=== PATIENT | male | born 1980 | race Caucasian/White ===

== ENCOUNTER 2016-12-23 12:53 | Observation (INO) | payer BC ==
--- NOTE | 2016-12-23 13:11 | ED ---
Chest Pain HPI - General Source: patient, EMS, RN notes reviewed Mode of arrival: EMS Limitations: no limitations <Luis Armando Plascencia - Last Filed: 12/23/16 14:36> <Stevenson Tinajero - Last Filed: 12/23/16 14:42> - General Stated Complaint: chest pain Time Seen by Provider: 12/23/16 12:58 - History of Present Illness Initial Comments: 36 year old male presents emergency Department with chief complaint of chest pain. Patient states started around 10:30 while he was getting worse for the stool. Patient states he was not overexerted himself. Though he is to his physical activity. Patient states started feeling slightly lightheaded a little dizzy and some pressure in his chest. Patient states he thought maybe is is hungry and just tired today he went inside states is not feeling any better at that time and states he became concerned. 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 Patient has no cardiac history no history of hyperlipidemia, hypertension, diabetes. No smoking history no known history. Patient denies any nausea, vomiting, abdominal pain. Patient denies any pleuritic chest pain. Patient was given aspirin, nitro. He states nitro she made it worse. (Luis Armando Plascencia) - Related Data Home Medications Medication Instructions Recorded Confirmed Ibuprofen [Advil] 200 - 400 mg PO Q8HR PRN 12/23/16 12/23/16 Spironolactone 100 mg PO BID 12/23/16 12/23/16 Venlafaxine HCl [Effexor] 37.5 mg PO DAILY 12/23/16 12/23/16 diphenhydrAMINE [Benadryl] 25 - 50 mg PO HS PRN 12/23/16 12/23/16 Allergies Allergy/AdvReac Type Severity Reaction Status Date / Time cefaclor [From Ceclor] AdvReac Rash/Hives Verified 12/23/16 13:23 lidocaine AdvReac SYNCOPE Verified 12/23/16 13:23 loratadine [From Claritin] AdvReac DYSRHYMIA Verified 12/23/16 13:23 Review of Systems ROS Other: All systems not noted in ROS Statement are negative. <Luis Armando Plascencia - Last Filed: 12/23/16 14:36> ROS Other: All systems not noted in ROS Statement are negative. <Stevenson Tinajero - Last Filed: 12/23/16 14:42> ROS Statement: Those systems with pertinent positive or pertinent negative responses have been documented in the HPI. EKG Findings - EKG Comments: EKG Findings:: EKG performed at 13:06 sinus tachycardia with a rate of 101 MT interval 138, QRS duration 90 QT/QTC 330/427 <TomasLuis Armando bunch - Last Filed: 12/23/16 14:36> General Exam General appearance: alert, in no apparent distress Head exam: Present: atraumatic, normocephalic, normal inspection Respiratory exam: Present: normal lung sounds bilaterally, chest wall tenderness. Absent: respiratory distress, wheezes, rales, rhonchi, stridor Cardiovascular Exam: Present: regular rate, normal rhythm, normal heart sounds. Absent: systolic murmur, diastolic murmur, rubs, gallop, clicks GI/Abdominal exam: Present: soft, normal bowel sounds. Absent: distended, tenderness, guarding, rebound, rigid <TemoLuis Armando Epps - Last Filed: 12/23/16 14:36> Course <Luis Armando Plascencia - Last Filed: 12/23/16 14:36> <Stevenson Tinajero - Last Filed: 12/23/16 14:42> Vital Signs 12/23/16 13:04 Temperature 98.2 F Pulse Rate 108 H Respiratory 16 Rate Blood Pressure 157/69 O2 Sat by Pulse 97 Oximetry - Reevaluation(s) Reevaluation #1: 12/23/16 14:40 I did personally do a [id number] examination and evaluation of the patient. He did present with midsternal chest pain that lasted over 45 minutes this morning after doing normal activities loading wood he did nothing that he thought could strain his chest wall. He did initially get some relief from aspirin nitroglycerin though repeat nitroglycerin seemed to make it somewhat worse. He still has some low-grade discomfort he states his normal heart rate is around 90 is been running 100 and above since the incident. He has no known risk factors he does not smoke or drink. No hypertension. His parents are healthy. There might be some remote history in his family members besides his parents. The initial cardiac enzymes and EKG are unremarkable. Clinical examination of his chest lungs are clear heart is regular no murmurs he is mildly tachycardic, examination about 10 7 bpm. No tenderness on palpation of the chest wall. Abdomen soft nontender. Patient will be admitted for further inpatient evaluation. This will include further enzymes and echocardiogram with cardiology consultation. A d-dimer is pending. (Stevenson Tinajero) Disposition <Luis Armando Plascencia - Last Filed: 12/23/16 14:36> <Stevenson Tinajero - Last Filed: 12/23/16 14:42> Clinical Impression: Unstable angina Disposition: ADMITTED IP TO THIS HOSP Condition: Stable Referrals: Stevenson Sandvoal [Primary Care Provider] - 1-2 days
[2016-12-23 13:29] LABS: Basophils # (A) 0.1 k/uL (0-0.2); Basophils % (A) 1 %; CH 31.9; CHCM 34.7; Eosinophils # (A) 0.1 k/uL (0-0.7); Eosinophils % (A) 1 %; HCT 46.6 % (39.0-53.0); HGB 15.8 gm/dL (13.0-17.5); Luc # (Auto) 0.25; Luc % (Auto) 3; Lymphocytes # (A) 1.5 k/uL (1.0-4.8); Lymphocytes % (A) 15 %; MCH 31.2 pg (25.0-35.0); MCHC 33.9 g/dL (31.0-37.0); MCV 92.3 fL (80.0-100.0); Mean Platelet Volume 6.5; Monocytes # (A) 0.6 k/uL (0-1.0); Monocytes % (A) 6 %; Neutrophils # (A) 7.4 k/uL (1.3-7.7); Neutrophils % (A) 75 %; RBC 5.05 m/uL (4.30-5.90); RDW 12.7 % (11.5-15.5); WBC 9.9 k/uL (3.8-10.6); WBC (Perox) 9.52
[2016-12-23 13:38] LABS: Partial Thromboplastin Time 24.1 sec (22.0-30.0); Prothrombin Time 10.4 sec (9.0-12.0)
[2016-12-23 13:44] LABS: ALT 28 U/L (21-72); AST 23 U/L (17-59); Alkaline Phosphatase 62 U/L (38-126); Anion Gap 8 mmol/L; Blood Urea Nitrogen 15 mg/dL (9-20); Calcium 9.8 mg/dL (8.4-10.2); Carbon Dioxide 30 mmol/L (22-30); Chloride 101 mmol/L (98-107); Glucose 91 mg/dL (74-99); Magnesium 2.1 mg/dL (1.6-2.3); Non-African American GFR(MDRD) >60 (>60 ml/min/1.73 sqM); Potassium 4.4 mmol/L (3.5-5.1); Sodium 139 mmol/L (137-145); Total Bilirubin 0.5 mg/dL (0.2-1.3); Total Protein 7.4 g/dL (6.3-8.2)
--- NOTE | 2016-12-23 13:57 | XR ---
EXAMINATION TYPE: XR chest 2V DATE OF EXAM: 12/23/2016 1:53 PM COMPARISON: NONE TECHNIQUE: PA and lateral views submitted. HISTORY: Chest pain FINDINGS: The lungs are clear and there is no pneumothorax, pleural effusion, or focal pneumonia. IMPRESSION: 1. No acute process.
[2016-12-23 14:04] LABS: Creatine Kinase 114 U/L (55-170)
[2016-12-23 14:17] LABS: Creatine Kinase MB 0.8 ng/mL (0.0-2.4); Troponin I <0.012 ng/mL (0.000-0.034)
[2016-12-23] MEDS ORDERED: HEPARIN SODIUM,PORCINE 5,000 UNIT/ML 1 ML VIAL IV ONE (14:37)
[2016-12-23] MEDS ORDERED: NITROGLYCERIN SL TABS 0.4 MG TAB SUBLINGUAL PRN (14:37)
[2016-12-23] MEDS ORDERED: HEPARIN SODIUM,PORCINE/D5W PMX 25,000 UNIT in DEXTROSE/WATER 1 500ML.BAG IV SCH (14:45)
[2016-12-23 20:10] LABS: Creatine Kinase 104 U/L (55-170)
[2016-12-23 20:23] LABS: Creatine Kinase MB 0.6 ng/mL (0.0-2.4); Troponin I <0.012 ng/mL (0.000-0.034)
[2016-12-23] MEDS ORDERED: diphenhydrAMINE 25 MG CAP PO PRN (21:00)
[2016-12-23] MEDS ORDERED: HYDROmorphone 1 MG/ML 1 ML SYRINGE IVP PRN (21:45)
[2016-12-23] MEDS ORDERED: ALPRAZolam 0.25 MG TAB PO PRN (21:45)
[2016-12-23] MEDS ORDERED: HYDROcodone/APAP 5-325MG 1 EACH TAB PO PRN (21:48)
[2016-12-23] MEDS ORDERED: IBUPROFEN 200 MG TAB PO PRN (21:48)
[2016-12-23] MEDS: SPIRONOLACTONE 25 MG TAB PO SCH (22:29)
[2016-12-23] MEDS: PANTOPRAZOLE 40 MG TABLET PO SCH (22:31)
[2016-12-23 22:52] LABS: Appearance,Urine Clear (Clear); Bilirubin,Urine Negative (Negative); Glucose,Urine (UA) Negative (Negative); Ketones,Urine Negative (Negative); Leukocyte Esterase,Urine Negative (Negative); Nitrite,Urine Negative (Negative); PH, Urine 5.5 (5.0-8.0); Protein,Urine Negative (Negative); Specific Gravity,Urine 1.006 (1.001-1.035); UA Billing (MACRO vs. MICRO) CHEM; Urobilinogen,Urine <2.0 mg/dL (<2.0)
[2016-12-24 02:19] LABS: Creatine Kinase 90 U/L (55-170)
[2016-12-24 02:30] LABS: Creatine Kinase MB 0.6 ng/mL (0.0-2.4); Troponin I <0.012 ng/mL (0.000-0.034)
[2016-12-24] MEDS ORDERED: HEPARIN SODIUM,PORCINE 5,000 UNIT/ML 1 ML VIAL IV PRN (03:27)
--- NOTE | 2016-12-24 06:24 | HP ---
DATE OF ADMISSION: CHIEF COMPLAINT: Chest pain. HISTORY OF PRESENT ILLNESS: Mr. Lord is a 36-year-old male without significant past medical history came to the hospital with complaints of chest pain. Apparently around 10:30 a.m. today, the patient was working in the yard. Suddenly, he became lethargic and dizzy and lightheadedness and also pressure in the chest which lasted about 40-45 minutes. His blood pressure was 130/70 when it happened. Patient called EMS and he did 12-lead EKG which showed an old infarct. Patient was given nitroglycerin by EMS, which seems to relieve his pain. Patient was brought to the hospital for further evaluation. Patient had chest pressure while in the hospital and patient was given another nitroglycerin. Patient says that which did not relieve his pain. The patient does not have any history for prior heart disease. No history of hypertension. No history of hyperlipidemia or coronary artery disease in the family. Patient denied any recent illnesses. 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 No sick contacts at home. REVIEW OF SYSTEMS: CONSTITUTIONAL: No fever. No chills. Patient did have fatigue and weakness when he came to the hospital. CARDIOVASCULAR: No chest pain now. No short of breath. No leg swelling. No palpitations. ABDOMEN: No nausea or vomiting or abdominal pain. RESPIRATORY: No cough or sputum production. No short of breath. GENITOURINARY: Negative. ENDOCRINE: Negative. NEUROLOGIC: No headache or dizziness or lightheadedness. All other 14-point review of systems negative except as above. PAST MEDICAL HISTORY: Depression. PAST SURGICAL HISTORY: None. SOCIAL HISTORY: Patient denied any history of smoking. Denied alcohol, drugs or IVDU. 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 FAMILY HISTORY: No history of hypertension, diabetes mellitus or premature heart disease in the family. ALLERGIES: CEFACLOR, LIDOCAINE and LORATADINE. Home medication include: 1. Ibuprofen. 2. Spironolactone. 3. Venlafaxine. 4. Benadryl. The patient does take spironolactone for gender ( ). PHYSICAL EXAMINATION: A 36-year-old male lying in bed comfortably, awake, alert, oriented, x3. Appears to be no apparent distress. VITALS: Blood pressure is 119/82, pulse is 99, respirations 16, temperature afebrile, pulse ox 96% on room air. HEENT: Atraumatic, normocephalic. Neck is supple. No JVD. CVS EXAM: S1, S2 heard. No murmurs, no gallop, no rub. LUNGS: Bilateral air entry is present. No wheezing. No crackles. Nonlabored breathing. ABDOMEN: Soft, nontender. Bowel sounds are present. REAL ESTATE AGENT/BROKER: Awake, alert, oriented, x3. No focal deficit. EXTREMITIES: No edema. Pulses palpable bilaterally. No clubbing or cyanosis. PSYCHIATRIC: Cooperative. LABORATORY DATA: WBC 9.9, hemoglobin 15.8, platelets 320. INR 1.0. D-dimer is 0.21. Sodium 139, potassium 4.4, chloride 101, bicarb is 30. BUN 15, creatinine 1.17. Magnesium 2.1. Liver enzymes are not elevated. Total protein 7.4. Lipase is 185. Troponin x2 negative. EKG shows sinus tachycardia with heart rate of 101. CHEST X-RAY: No acute process. IMPRESSION: Unstable angina. Patient will be continued on heparin drip at this time. Cardiology has been consulted. We will continue the telemonitoring and serial EKGs and troponins. D-dimer will be ordered and continue to monitor closely. Continue the home medications. Patient does take spironolactone for gender variance as per the patient. Patient does not have any history of hypertension. No history of hyperlipidemia or smoking or family history. Cardiology has been consulted for further evaluation. Further recommendations based on the clinical course. DM
--- NOTE | 2016-12-24 06:39 | HP ---
DATE OF ADMISSION: CHIEF COMPLAINT: Chest pain. HISTORY OF PRESENT ILLNESS: This 36-year-old gentleman with a past history of DJD, history of gender dysphoria, history of wisdom teeth extraction, history of depression being followed by Dr. Stevenson Sandoval in the [place] area who specializes in gender dysphoria who presented at [facility] with complaints of chest pressure. 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 Because of persistence of the discomfort, patient became concerned and patient came to [facility] and admitted for further evaluation and treatment. The initial troponins are negative. The initial EKG showed normal sinus rhythm and no acute abnormality. The chest x-ray was also done in the ER which showed no acute process and the patient admitted for further evaluation and treatment. There is no history of any fever, rigors or chills. No history of headache, loss of consciousness or seizures. PAST MEDICAL HISTORY: History of DJD, history of depression. Medications prior to admission include: 1. Benadryl 25 to 50 mg q.h.s. p.r.n. 2. Effexor 37.5 mg p.o. daily. 3. Aldactone 100 mg p.o. b.i.d. 4. Advil 200 to 400 mg p.o. q.8 p.r.n. Allergies are CEFACLOR, LIDOCAINE and LORATADINE. FAMILY HISTORY: No history of heart disease or strokes in the family. SOCIAL HISTORY: No history of smoking. No history of alcohol intake. 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 REVIEW OF SYSTEMS: ENT: No diminishing hearing or diminished vision. CARDIOVASCULAR: As mentioned earlier. RESPIRATORY: As mentioned earlier. GI: No nausea. : No dysuria. NERVOUS SYSTEM: No numbness or weakness. ALLERGY/IMMUNOLOGY: No history of asthma or hayfever. MUSCULOSKELETAL: As mentioned earlier. HEMATOLOGY/ONCOLOGY: No history of anemia. ENDOCRINE: As mentioned earlier. CONSTITUTIONAL: As mentioned earlier. DERMATOLOGY: Negative. RHEUMATOLOGY: Negative. PSYCHIATRY: As mentioned earlier. PHYSICAL EXAMINATION: The patient is alert and oriented x3. Pulse is 99, blood pressure 119/82, respiratory 16, temperature 98.7, pulse ox 96% on room air. HEENT: Conjunctivae normal. Oral mucosa moist. NECK: No jugular venous distention. No carotid bruit. No lymph node enlargement. CARDIOVASCULAR: S1 and S2, muffled. No S3, no S4. RESPIRATORY: Breath sounds diminished at the bases. No rhonchi, no crackles. ABDOMEN: Soft, nontender. No mass palpable. LEGS: No edema, no swelling. NERVOUS SYSTEM: Higher function as mentioned earlier. Moves all 4 limbs. No focal motor deficit. LYMPHATICS: No lymphadenopathy of neck, axillae or groin. SKIN: No ulcers, rashes or bleeding. JOINTS: No active deforming arthropathy. LABS: CBC within normal limits. PT, INR normal. CMP within normal limits. ASSESSMENT: 1. Chest discomfort and rule out myocardial infarction and unstable angina and coronary artery disease. 2. History of degenerative joint disease. 3. History of depression, not otherwise specified. 4. FULL CODE. RECOMMENDATIONS AND DISCUSSION: In this 36-year-old gentleman who was admitted with chest pain, we will monitor the patient closely. Continue the current medications and symptomatic treatment of the pain will be provided. Rule out myocardial infarction. Cardiology consultation. Keep n.p.o. past midnight, possible stress test in the morning if all the troponins are negative. Otherwise, will resume the home medications. Guarded prognosis because of multiple complex medical issues. Further recommendations to follow. See orders for further details.
[2016-12-24 06:46] VITALS: RESP 18
[2016-12-24 07:06] LABS: Basophils % (A) 0 %; CH 30.9; CHCM 33.3; Eosinophils # (A) 0.1 k/uL (0-0.7); Eosinophils % (A) 2 %; HCT 48.6 % (39.0-53.0); HGB 15.8 gm/dL (13.0-17.5); Luc # (Auto) 0.19; Luc % (Auto) 2; Lymphocytes # (A) 2.3 k/uL (1.0-4.8); Lymphocytes % (A) 28 %; MCH 30.3 pg (25.0-35.0); MCHC 32.5 g/dL (31.0-37.0); MCV 93.2 fL (80.0-100.0); Mean Platelet Volume 6.4; Monocytes # (A) 0.4 k/uL (0-1.0); Monocytes % (A) 5 %; Neutrophils # (A) 5.2 k/uL (1.3-7.7); Neutrophils % (A) 63 %; RBC 5.21 m/uL (4.30-5.90); RDW 12.9 % (11.5-15.5); WBC 8.2 k/uL (3.8-10.6); WBC (Perox) 7.94
[2016-12-24 07:16] LABS: Anion Gap 9 mmol/L; Blood Urea Nitrogen 13 mg/dL (9-20); Calcium 9.3 mg/dL (8.4-10.2); Carbon Dioxide 29 mmol/L (22-30); Chloride 103 mmol/L (98-107); Cholesterol 159 mg/dL (<200); Glucose 92 mg/dL (74-99); HDL Cholesterol 42 mg/dL (40-60); Non-African American GFR(MDRD) >60 (>60 ml/min/1.73 sqM); Potassium 4.1 mmol/L (3.5-5.1); Sodium 141 mmol/L (137-145); Triglycerides 146 mg/dL (<150)
--- NOTE | 2016-12-24 08:17 | P.CRDCN ---
History of Present Illness Consult date: 12/24/16 Chief complaint: Chest discomfort History of present illness: This is a pleasant 36-year-old male patient with no significant past medical history presented to the hospital complaining of chest discomfort. He was in his usual state of health where he was doing some work at home when he started experiencing chest discomfort across the chest without any radiation to the arm or neck or shoulders and without any associated symptoms. He called ambulance and a 12 sees EKG was performed as well as he was given nitroglycerin without improvement in the symptoms. The EKG in the hospital showed sinus rhythm without any significant ST or T- wave abnormalities. 3 sets of cardiac enzymes were performed and came in to be unremarkable. The patient has no history of diabetes or hypertension or dyslipidemia. He does not smoke or drink alcohol. He has no significant family history of CAD. Past Medical History Past Medical History: Osteoarthritis (OA) Additional Past Medical History / Comment(s): GENDER DYSPHORIA, DEPRESSION History of Any Multi-Drug Resistant Organisms: None Reported Past Surgical History: No Surgical Hx Reported Additional Past Surgical History / Comment(s): WISDOM TEETH REMOVED,SX ON BELEM GREAT TOES FOR INGROWN TOE NAILS Past Anesthesia/Blood Transfusion Reactions: No Reported Reaction Additional Past Anesthesia/Blood Transfusion Reaction / Comment(s): MOTION SICKNESS CHILD Past Psychological History: Depression Additional Psychological History / Comment(s): PT STATED THAT HE FEELS WELL MAINTAINED ON HIS CURRENT MEDS.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 Smoking Status: Never smoker Past Alcohol Use History: None Reported Past Drug Use History: None Reported Medications and Allergies Home Medications Medication Instructions Recorded Confirmed Type Ibuprofen [Advil] 200 - 400 mg PO Q8HR PRN 12/23/16 12/23/16 History Spironolactone 100 mg PO BID 12/23/16 12/23/16 History Venlafaxine HCl [Effexor] 37.5 mg PO DAILY 12/23/16 12/23/16 History diphenhydrAMINE [Benadryl] 25 - 50 mg PO HS PRN 12/23/16 12/23/16 History Allergies Allergy/AdvReac Type Severity Reaction Status Date / Time cefaclor [From Ceclor] AdvReac Rash/Hives Verified 12/23/16 13:23 lidocaine AdvReac SYNCOPE Verified 12/23/16 13:23 loratadine [From Claritin] AdvReac DYSRHYMIA Verified 12/23/16 13:23 Physical Exam Vitals: Vital Signs Temp Pulse Pulse Pulse Resp BP BP 12/24/16 04:00 98.5 F 89 98 18 132/73 12/24/16 01:00 122/78 12/24/16 00:00 16 126/70 12/23/16 20:00 16 12/23/16 19:44 98.8 F 98 16 122/71 12/23/16 17:00 98.7 F 99 16 119/82 12/23/16 16:45 97.3 F L 99 18 123/74 Pulse Ox 12/24/16 04:00 95 12/24/16 01:00 12/24/16 00:00 12/23/16 20:00 12/23/16 19:44 100 12/23/16 17:00 96 12/23/16 16:45 100 Intake and Output 12/23/16 12/24/16 12/24/16 22:59 06:59 14:59 Intake Total 247.295 Balance 247.295 Intake: Intake, IV Titration 247.295 Amount Heparin Sodium,Porcine/ 247.295 D5w Pmx 25,000 unit In Dextrose/Water 1 500ml. bag @ 9.1 UNITS/KG/HR 19. 81 mls/hr IV .Q24H [facility] Rx #:[id number] Other: # Voids 1 Weight 108.9 kg 108.9 kg - Constitutional General appearance: no acute distress - Respiratory Respiratory: bilateral: CTA - Cardiovascular Rhythm: regular Heart sounds: normal: S1, S2 Results 12/24/16 06:48 12/24/16 06:48 Cardiac Enzymes 12/23/16 12/24/16 Range/Units 19:34 01:26 CK-MB (CK-2) 0.6 0.6 (0.0-2.4) ng/mL Troponin I <0.012 <0.012 (0.000-0.034) ng/mL Coagulation 12/23/16 12/24/16 Range/Units 22:04 06:48 APTT 29.1 38.0 H (22.0-30.0) sec Lipids 12/24/16 Range/Units 06:48 Triglycerides 146 (<150) mg/dL Cholesterol 159 (<200) mg/dL HDL Cholesterol 42 (40-60) mg/dL CBC 12/24/16 Range/Units 06:48 WBC 8.2 (3.8-10.6) k/uL RBC 5.21 (4.30-5.90) m/uL Hgb 15.8 (13.0-17.5) gm/dL Hct 48.6 (39.0-53.0) % Plt Count 286 (150-450) k/uL Comprehensive Metabolic Panel 12/24/16 Range/Units 06:48 Sodium 141 (137-145) mmol/L Potassium 4.1 (3.5-5.1) mmol/L Chloride 103 (98-107) mmol/L Carbon Dioxide 29 (22-30) mmol/L BUN 13 (9-20) mg/dL Creatinine 1.02 (0.66-1.25) mg/dL Glucose 92 (74-99) mg/dL Calcium 9.3 (8.4-10.2) mg/dL Current Medications Generic Name Dose Route Start Last Admin Trade Name Freq PRN Reason Stop Dose Admin Hydrocodone Bitart/Acetaminophen 1 each 12/23/16 21:48 12/23/16 22:37 Tun[place] 5-325 PO 1 each Q6HR PRN Administration moderate Pain Alprazolam 0.25 mg 12/23/16 21:45 Xanax PO TID PRN Anxiety Aspirin 325 mg 12/24/16 09:00 Aspirin PO DAILY DOMO Diphenhydramine HCl 25 mg 12/23/16 21:00 12/23/16 22:37 Benadryl PO 25 mg HS PRN Administration Insomnia Heparin Sodium (Porcine) 0 unit 12/24/16 03:27 12/24/16 03:35 Heparin IV 4,000 unit PER PROTOCOL PRN Administration Low PTT Protocol Hydromorphone HCl 0.5 mg 12/23/16 21:45 Dilaudid IVP Q6HR PRN Severe Pain Heparin Sodium/Dextrose 25,000 500 mls @ 19.81 mls/hr 12/23/16 14:45 03:34 unit/ IV Solution IV 12.12 units/kg/hr .Q24H DOMO 26.4 mls/hr Protocol Titration 9.1 UNITS/KG/HR Ibuprofen 400 mg 12/23/16 21:48 Advil PO Q8HR PRN mild Pain Nitroglycerin 0.4 mg 12/23/16 14:37 12/23/16 20:11 Nitrostat SUBLINGUAL 0.4 mg Q5M PRN Administration Chest Pain Pantoprazole Sodium 40 mg 12/23/16 21:45 12/23/16 22:31 Protonix PO 40 mg [id number] DOMO Administration Spironolactone 100 mg 12/23/16 21:00 12/23/16 22:29 Aldactone PO Not Given BID DOMO Venlafaxine HCl 37.5 mg 12/24/16 09:00 Effexor PO DAILY DOMO Intake and Output 12/23/16 12/24/16 12/24/16 22:59 06:59 14:59 Intake Total 247.295 Balance 247.295 Intake: Intake, IV Titration 247.295 Amount Heparin Sodium,Porcine/ 247.295 D5w Pmx 25,000 unit In Dextrose/Water 1 500ml. bag @ 9.1 UNITS/KG/HR 19. 81 mls/hr IV .Q24H [facility] Rx #:[id number] Other: # Voids 1 Weight 108.9 kg 108.9 kg 12/24/16 06:48 12/24/16 06:48 Assessment and Plan Plan: Assessment Chest discomfort which has resolved Plan The patient was ruled out for acute coronary event I'll proceed with a stress test.
[2016-12-24] MEDS ORDERED: VENLAFAXINE HCL 37.5 MG TAB PO SCH (09:00)
[2016-12-24] MEDS ORDERED: ASPIRIN 325 MG TAB PO SCH (09:00)
--- NOTE | 2016-12-24 10:57 | EST ---
DATE OF SERVICE: 12/24/2016 AGE: 36Y SEX: M HT: 6' WT: 240 lbs. Protocol Santos: X Other: Stress Stage: 2 Dur. of Exercise: 7:27 *Heart Rate Blood Pressure *Rest: 94 Rest: 119/77 * *Max. Achieved: 168 Maximum BP: 170/60 85% PMHR: 156 100% PMHR: 184 *METS: 8.3 INDICATIONS: Chest pain. MEDICATIONS: Effexor, Spironolactone, Advil, Benadryl, Zyrtec D. Baseline EKG revealed normal sinus rhythm without significant ST-T changes. Patient walked for 7-1/2 minutes, achieved a maximum of 168 beats per minute, well above 85% of predicted maximal. He developed some shortness of breath, lightheadedness and became vasovagal towards the end of exercise. Peak blood pressure was 170/60, peak heart rate was 168 beats per minute. By EKG criteria, this is a negative stress test. There was no arrhythmia or angina and EKG was unremarkable for ischemia. Post stress test, patient developed some lightheadedness and dizziness and had a brief vasovagal episode that resolved very quickly. He was given some IV fluids. He was sent to the room in a stable condition and an echocardiogram was also advised. This is a negative stress test without any evidence of ischemia.
[2016-12-24] MEDS: SPIRONOLACTONE 25 MG TAB PO SCH (11:30)
[2016-12-24] MEDS: PANTOPRAZOLE 40 MG TABLET PO SCH (11:30)
[2016-12-24] MEDS ORDERED: MAG HYDROX/AL HYDROX/SIMETH 30 ML CUP PO PRN (11:45)
--- NOTE | 2016-12-24 12:05 | ECHOF ---
Referral Reason:Atypical Chest Pain. MEASUREMENTS -------- HEIGHT: 182.9 cm WEIGHT: 113.4 kg BP: RVIDd: 2.8 cm (< 3.3) IVSd: 1.2 cm (0.6 - 1.1) LVIDd: 3.6 cm (3.9 - 5.3) LVPWd: 1.0 cm (0.6 - 1.1) IVSs: 1.4 cm LVIDs: 3.2 cm LVPWs: 1.1 cm LA Diam: 3.5 cm (2.7 - 3.8) Ao Diam: 3.1 cm (2.0 - 3.7) AV Cusp: 1.7 cm (1.5 - 2.6) LA Diam: 3.3 cm (2.7 - 3.8) MV EXCURSION: 20.130 mm (> 18.000) MV EF SLOPE: 109 mm/s (70 - 150) EPSS: 0.8 cm MV E Ryan: 0.50 m/s MV DecT: 230 ms MV A Ryan: 0.62 m/s MV E/A Ratio: 0.80 AR PHT: 295 ms RAP: 5.00 mmHg RVSP: 22.68 mmHg FINDINGS -------- Sinus rhythm. This was a technically good study. There is mild concentric left ventricular hypertrophy. Overall left ventricular systolic function is normal with, an EF between 55 - 60 %. The right ventricle is normal in size. The left atrial size is normal. The right atrial size is normal. There is mild aortic valve sclerosis. There is no evidence of aortic regurgitation. Mild mitral annular calcification present. Mild mitral regurgitation is present. Mild tricuspid regurgitation present. There is no evidence of pulmonary hypertension. The right ventricular systolic pressure, as measured by Doppler, is 22.68mmHg. There is no pulmonic regurgitation present. The aortic root size is normal. There is no pericardial effusion. CONCLUSIONS -------- 1. There is mild concentric left ventricular hypertrophy. 2. Overall left ventricular systolic function is normal with, an EF between 55 - 60 %. 3. There is mild aortic valve sclerosis. 4. Mild mitral annular calcification present. 5. Mild mitral regurgitation is present. 6. Mild tricuspid regurgitation present. 7. There is no evidence of pulmonary hypertension. 8. The right ventricular systolic pressure, as measured by Doppler, is 22.68mmHg. ROBOTYPE OPERATOR: Chloe Bolivar RDCS
[2016-12-24 12:15] VITALS: PULSE 103
[2016-12-24 16:21] VITALS: BP 137/74; TEMP 98.7
--- NOTE | 2016-12-25 06:15 | DS ---
DATE OF ADMISSION: 12/23/2016 DATE OF DISCHARGE: 12/24/2016 DISCHARGE DIAGNOSES: 1. Chest pain/angina. Ruled out acute coronary syndrome. Negative stress test and echocardiogram. 2. Anxiety. HOSPITAL COURSE: Mr. Lord is a 36-year-old male without significant past medical history admitted to the hospital with complaints of chest pain. Patient had EKG done in the hospital, showed normal sinus rhythm with no ST-T wave changes. The patient underwent telemonitoring and serial EKGs and troponins were done. Troponin x3 is negative and also serial EKGs are negative as well. No acute events noted on the telemetry. Cardiology seen the patient and recommended a stress test, which showed no reversible ischemia. Patient also had underwent a 2-D echocardiogram, showed normal ejection fraction, no wall motion abnormalities or valvular abnormalities have been noted. Otherwise, patient did complain of dull pain and D-dimer was done, which was also negative. Patient was advised to not use ibuprofen on a daily basis and advised to take with food. Otherwise, the patient is symptomatically much improved now and is stable for discharge home. DISCHARGE PHYSICAL EXAMINATION: A 36-year-old male, lying on the bed comfortably, awake, alert, oriented x3, appears to be in no apparent distress. VITALS: Blood pressure is 137/74, pulse 103, respirations 18, temperature afebrile, pulse ox 97% on room air. Laboratory data reviewed Troponin x3 are negative. LDL is 88. TSH level is 1.5. D-dimer is not elevated 0.21. Other laboratory data are essentially negative. Discharge physical examination done. Discharge medications include: 1. Ibuprofen 200 to 400 mg p.o. q.8 hourly p.r.n. for pain. 2. Spironolactone 100 mg p.o. b.i.d. 3. Effexor 37.5 mg p.o. daily. 4. Benadryl 25 to 50 mg p.o. at bedtime p.r.n. for insomnia. Follow with Dr. Wick and follow with Dr. Stevenson Sandoval in 1 to 2 days. Home with self care. Activity as tolerated. Heart healthy diet.
== END 2016-12-24 17:04 | disposition home or self-care (01) ==
LOC: EC 12:53 → 3OBS 14:42 → 6SEL 12-24 09:21 → 3OBS 12-24 09:29
PROVIDERS: ADMIT Hospitalist; ATTEND Hospitalist
DX: I20.0 Unstable angina (principal); R07.9 Chest pain, unspecified; F41.9 Anxiety disorder, unspecified; F32.9 Major depressive disorder, single episode, unspecified; Z79.899 Other long term (current) drug therapy; Z88.4 Allergy status to anesthetic agent; Z88.3 Allergy status to other anti-infective agents; Z88.8 Allergy status to other drugs, medicaments and biological substances
CPT/HCPCS: 96376 ×2; 96365 ×2; 96366 ×4; 99285 ×2; 36415; 93005; 93017; 93306; 85379; 80061; 80053; 80048; 84443; 82550 ×2; 82553 ×2; 83690; 83735; 84484 ×2; 85025 ×2; 85610; 85730 ×2; 81003; 71020; G0378 ×2; J1644 ×3

== ENCOUNTER 2016-12-26 20:21 | Observation (INO) | payer BC ==
[2016-12-26] MEDS ORDERED: SODIUM CHLORIDE 0.9% 1,000 ML BAG ONE (20:30)
[2016-12-26] MEDS ORDERED: MORPHINE SULFATE 4 MG/ML SYRINGE ONE (20:37)
[2016-12-26] MEDS ORDERED: LORazepam 2 MG/ML SYRINGE ONE (20:37)
[2016-12-27] MEDS ORDERED: NITROGLYCERIN OINT 1 INCH/GM PACKET TOPICAL ONE (00:30)
[2016-12-27 02:18] LABS: Basophils # (A) 0.1 k/uL (0-0.2); Basophils % (A) 1 %; CH 31.4; CHCM 34.7; Eosinophils # (A) 0.1 k/uL (0-0.7); Eosinophils % (A) 1 %; HGB 15.7 gm/dL (13.0-17.5); Luc # (Auto) 0.36; Luc % (Auto) 3; Lymphocytes # (A) 1.8 k/uL (1.0-4.8); Lymphocytes % (A) 14 %; MCH 30.9 pg (25.0-35.0); MCV 90.9 fL (80.0-100.0); Mean Platelet Volume 6.7; Monocytes # (A) 0.7 k/uL (0-1.0); Monocytes % (A) 6 %; Neutrophils # (A) 9.8 k/uL (1.3-7.7); Neutrophils % (A) 76 %; RBC 5.06 m/uL (4.30-5.90); RDW 12.7 % (11.5-15.5); WBC 12.8 k/uL (3.8-10.6); WBC (Perox) 12.48
[2016-12-27 02:19] LABS: INR 1.1 (<1.1); Partial Thromboplastin Time 24.2 sec (22.0-30.0); Prothrombin Time 11.2 sec (9.0-12.0)
[2016-12-27 02:20] LABS: ALT 28 U/L (21-72); AST 26 U/L (17-59); Alkaline Phosphatase 73 U/L (38-126); Amylase 58 U/L (30-110); Anion Gap 14 mmol/L; Blood Urea Nitrogen 15 mg/dL (9-20); Calcium 10.4 mg/dL (8.4-10.2); Carbon Dioxide 20 mmol/L (22-30); Chloride 103 mmol/L (98-107); Glucose 91 mg/dL (74-99); Magnesium 1.9 mg/dL (1.6-2.3); Non-African American GFR(MDRD) >60 (>60 ml/min/1.73 sqM); Phosphorous 1.7 mg/dL (2.5-4.5); Potassium 3.8 mmol/L (3.5-5.1); Sodium 137 mmol/L (137-145); Total Bilirubin 0.5 mg/dL (0.2-1.3); Total Protein 7.2 g/dL (6.3-8.2)
[2016-12-27 02:21] LABS: Creatine Kinase 112 U/L (55-170); Creatine Kinase MB 0.7 ng/mL (0.0-2.4); Troponin I <0.012 ng/mL (0.000-0.034)
[2016-12-27 02:50] VITALS: BMI 32.5
[2016-12-27 04:51] LABS: Creatine Kinase 93 U/L (55-170)
[2016-12-27] MEDS: SODIUM CHLORIDE 0.9% 1,000 ML IV SCH ×2 (04:59→16:51)
[2016-12-27 05:05] LABS: Creatine Kinase MB 0.9 ng/mL (0.0-2.4); Troponin I <0.012 ng/mL (0.000-0.034)
[2016-12-27] MEDS: NITROGLYCERIN OINT 1 INCH/GM PACKET TOPICAL SCH ×3 (06:18→18:30)
--- NOTE | 2016-12-27 07:40 | XR ---
EXAMINATION TYPE: XR chest 1V portable DATE OF EXAM: 12/27/2016 7:26 AM COMPARISON: 12/23/2016 HISTORY: Shortness of breath TECHNIQUE: Single frontal view of the chest is obtained. FINDINGS: There is no focal air space opacity, pleural effusion, or pneumothorax seen. The cardiac silhouette size is within normal limits. The osseous structures are intact. IMPRESSION: No acute process.
[2016-12-27] MEDS ORDERED: ASPIRIN 325 MG TAB PO SCH (09:00)
[2016-12-27] MEDS ORDERED: NON-FORMULARY DRUG (Cetirizine Hcl [Zyrtec] 10 MG) PO SCH (10:00)
[2016-12-27] MEDS: ACETAMINOPHEN TAB 325 MG TAB PO PRN ×2 (10:22→16:48)
[2016-12-27 10:24] LABS: Creatine Kinase 98 U/L (55-170)
[2016-12-27 10:37] LABS: Creatine Kinase MB 0.7 ng/mL (0.0-2.4); Troponin I <0.012 ng/mL (0.000-0.034)
[2016-12-27] MEDS: SPIRONOLACTONE 25 MG TAB PO SCH ×2 (11:02→16:48)
[2016-12-27] MEDS: PRENATAL VIT-IRON-FOLIC ACID 1 EACH CAP PO SCH (11:02)
[2016-12-27] MEDS: VENLAFAXINE HCL 37.5 MG TAB PO SCH (11:03)
--- NOTE | 2016-12-27 14:31 | CT ---
EXAM: CT Angiography Chest With Intravenous Contrast CLINICAL HISTORY: Chest pain and SOB. TECHNIQUE: Axial computed tomographic angiography images of the chest with intravenous contrast using pulmonary embolism protocol. CTDI is 11.8 mGy and DLP is 494.5 mGy-cm This CT exam was performed using one or more of the following dose reduction techniques: automated exposure control, adjustment of the mA and/or kV according to patient size, and/or use of iterative reconstruction technique. MIP reconstructed images were created and reviewed. Coronal and sagittal reformatted images were created and reviewed. COMPARISON: No relevant prior studies available. FINDINGS: Pulmonary arteries: No pulmonary embolism. Aorta: No acute findings. No thoracic aortic aneurysm. Lungs: Left upper lobe 4-mm nodule. Pleural space: Unremarkable. No significant effusion. No pneumothorax. Heart: Unremarkable. No cardiomegaly. No significant pericardial effusion. No evidence of RV dysfunction. Bones/joints: Multilevel degenerative changes of the thoracic spine with Schmorl's nodes. No acute fracture. No dislocation. Soft tissues: Unremarkable. Lymph nodes: Unremarkable. No enlarged lymph nodes. IMPRESSION: 1. No pulmonary embolism. 2. Left upper lobe 4-mm nodule. For low-risk patients, no follow-up is necessary. For high-risk patients (smoking history or other known risk factors) recommend CT at 12 months and if unchanged, no further follow-up.
[2016-12-28] MEDS ORDERED: ALPRAZolam 0.25 MG TAB PO PRN (00:03)
[2016-12-28] MEDS ORDERED: ALBUTEROL NEBULIZED 2.5 MG/3 ML INHALATION PRN (00:07)
[2016-12-28] MEDS: NITROGLYCERIN OINT 1 INCH/GM PACKET TOPICAL SCH ×2 (02:12→08:34)
[2016-12-28 08:08] LABS: Basophils # (A) 0.1 k/uL (0-0.2); Basophils % (A) 1 %; CHCM 33.1; Eosinophils # (A) 0.1 k/uL (0-0.7); Eosinophils % (A) 1 %; HCT 47.2 % (39.0-53.0); HDW 2.34; HGB 15.3 gm/dL (13.0-17.5); Luc # (Auto) 0.25; Luc % (Auto) 3; Lymphocytes # (A) 1.9 k/uL (1.0-4.8); Lymphocytes % (A) 21 %; MCH 30.6 pg (25.0-35.0); MCHC 32.6 g/dL (31.0-37.0); MCV 94.1 fL (80.0-100.0); Mean Platelet Volume 6.4; Monocytes # (A) 0.5 k/uL (0-1.0); Monocytes % (A) 6 %; Neutrophils # (A) 6.3 k/uL (1.3-7.7); Neutrophils % (A) 69 %; RBC 5.01 m/uL (4.30-5.90); RDW 12.9 % (11.5-15.5); WBC 9.2 k/uL (3.8-10.6); WBC (Perox) 9.25
[2016-12-28] MEDS ORDERED: BECLOMETHASONE DIP 80 MCG/PUFF INHALER INHALATION SCH (09:00)
[2016-12-28 09:14] LABS: Anion Gap 13 mmol/L; Blood Urea Nitrogen 12 mg/dL (9-20); Calcium 9.5 mg/dL (8.4-10.2); Carbon Dioxide 25 mmol/L (22-30); Chloride 104 mmol/L (98-107); Glucose 84 mg/dL (74-99); Non-African American GFR(MDRD) >60 (>60 ml/min/1.73 sqM); Potassium 4.7 mmol/L (3.5-5.1); Sodium 142 mmol/L (137-145)
[2016-12-28] MEDS ORDERED: ASPIRIN 81 MG CHEW PO SCH (09:42)
[2016-12-28] MEDS ORDERED: SODIUM CHLORIDE 0.9% 1,000 ML IV SCH (09:45)
--- NOTE | 2016-12-28 10:16 | PN ---
Mr. Guzman Lord a 36-year-old male patient was admitted for evaluation of chest discomfort. He was seen by Dr. Moore yesterday. His initial chest discomfort occurred when he was in the yard, doing some yard work. He was dizzy. He was lightheaded. He was having chest discomfort. He underwent a regular stress test today and became vasovagal towards the end of the test. Echo was normal. Ejection fraction is normal. Pulmonary artery pressure is normal. He underwent a CT of the chest which shows a 4 mm nodule, I doubt if this is related to his pain. I examined this morning and reviewed his labs. His cardiac enzymes have been negative x3. His hemoglobin is normal. Electrolytes are normal. TSH is normal. BNP is normal. On examination, his blood pressure is 121/64 mmHg, 104/72 mmHg. Heart sounds are normal. Breath sounds are normal. No rhonchi. No crackles. Chest wall no tenderness. IMPRESSION: 1. Atypical constant chest discomfort 5 out of 10 while lying in bed as well as when walking, relieved with nitroglycerin. 2. Admitted with an episode of chest discomfort with dizziness, lightheadedness while working in the yard. 3. Chest discomfort once again and not feeling good while at work and he was standing at that time. 4. During the stress test, he became a little vasovagal, but he denied any chest discomfort at that time. SUGGEST: His 12-lead ECG during chest discomfort, after discontinuing nitroglycerin paste showed no ST segment abnormalities. He has virtually no risk factors other than history of coronary artery disease in his mother. I do not have clear-cut documentation of that at this time, but he has no hypertension or dyslipidemia. He has no risk factors for coronary artery disease other than being a male He is a never smoker. He does take spironolactone for the ( ) effects. ( ) 1. His cardiac enzymes are normal. He has no risk factors for coronary disease. EKG during 5 out of 10 chest discomfort when nitro paste was removed is normal. I very much doubt coronary artery disease because his pain is very atypical. 2. I think this man probably has vasovagal episodes but he does not actually pass out. I would like to perform a tilt table test. This gentleman is on spironolactone also and on high doses. He also has a 4 mm nodule in the lung, which needs an outpatient workup. I doubt if that is the cause of the chest discomfort. I did talk to him about coronary angiography. He understands the risks. He understands the benefits. I would be very surprised if he had significant coronary artery disease by an angiogram. He is also in agreement that first noncardiac causes should be ruled out before proceeding with coronary angiography, especially after the normal stress test and the symptoms normally seen in cardiac enzymes and the EKG that is performed during chest discomfort off nitroglycerin.
[2016-12-28] MEDS ORDERED: SODIUM CHLORIDE 0.9% 500 ML IV ONE ×2 (10:20→12:14)
--- NOTE | 2016-12-28 11:07 | CONS ---
DATE OF CONSULTATION: This patient was admitted to this hospital on the december with complaints of chest pain. At that time, patient was seen by Dr. Wick. The patient was evaluated by stress test which was negative for ischemia. Echocardiogram showed good LV function. Patient was discharged home in a stable condition. Patient came back to the hospital this time essentially complaining of more shortness of breath. The patient claims with minimal activity he is getting short of breath. His chest x-ray did not reveal any significant changes. CT scan was negative for pulmonary emboli. He also might have had mild chest pain. His lab values showed normal troponin values. His CBC showed a normal hemoglobin, white count is mildly elevated. Electrolytes are within normal limits. Etiology of shortness of breath is not clear. I recommend pulmonary consultation. If that is negative, cardiac catheterization may be considered to rule out underlying ischemic heart disease. His past medical history is significant for osteoarthritis. He has history of depression. His medication in the past included: 1. Advil. 2. Spironolactone. 3. Effexor. 4. Benadryl. He is allergic to CEFACLOR. Physical examination reveals a 36-year-old gentleman who is alert, oriented, does not appear to be in acute distress. Blood pressure is 113/53, pulse rate is about 70-80. Neck is supple. No JVD. HEART: S1 and S2 heard. Lungs appear to be clear. ABDOMEN: Soft. Extremities, no significant edema. FINAL IMPRESSION: 1. Shortness of breath with minimal activity, etiology unclear. 2. Recent bout of chest pain with negative stress test on the echo. PLAN: From cardiac standpoint, no further work-up at this time. A pulmonary consult should be considered.
[2016-12-28 11:54] VITALS: BP 99/56; PULSE 74; RESP 16; TEMP 98.4
[2016-12-28] MEDS: SPIRONOLACTONE 25 MG TAB PO SCH (12:12)
[2016-12-28] MEDS: PRENATAL VIT-IRON-FOLIC ACID 1 EACH CAP PO SCH (12:13)
[2016-12-28] MEDS: VENLAFAXINE HCL 37.5 MG TAB PO SCH (12:13)
--- NOTE | 2016-12-28 12:23 | HP ---
DATE OF ADMISSION: ADDENDUM: IMPRESSION: 1. Chest discomfort and shortness of breath. Shortness of breath is exertional. Patient had recent stress test negative. D-dimer negative. CT angiogram showed no pulmonary embolism. CT angiogram also showed 4 mm left upper lobe nodule. Pulmonary has been consulted. Further recommendations awaiting at this time. Otherwise the patient's symptoms are slightly improved. Serial EKGs and troponins are negative. D-dimer is also negative. Patient denied any history of smoking, alcohol, drugs or IVDU. We will continue to monitor the patient and follow up closely. Continue the symptomatic management. 2. Mild leukocytosis. Will recheck tomorrow. No signs of infection noted. 3. Deep venous thrombosis prophylaxis with heparin subcu. DISCUSSION AND PLAN: Patient will be continued on home medications include: Mirapex and spironolactone. The patient takes spironolactone for gender dysphoria. Will continue to follow closely. Further recommendations based on the clinical course. Patient does not have any history of hypertension. MTDD
--- NOTE | 2016-12-28 12:27 | HP ---
DATE OF ADMISSION: 12/26/2016 CHIEF COMPLAINT: Short of breath. HISTORY OF PRESENT ILLNESS: Mr. Lord is a 36-year-old male with no significant past medical history came to the hospital with complaints of worsening short of breath and exertional. Patient was recently admitted to the hospital with chest pain and had work-up done including a stress test and 2-D echo which have been negative. D-dimer was also negative at the time. Patient went home. Patient says that on the first day he was feeling okay and the next day he went to work and he was having interval short of breath there and his colleagues referred him to the hospital. Patient had a chest x-ray done, showed no acute cardiopulmonary process. Patient had a 2-D echo. Patient had a CT angiogram of the chest showed no pulmonary embolism. Showed 4 mm lung nodule in the left upper lobe, patient denied any weight loss, denied any loss of appetite. No recent illnesses. No sick contacts at home. No recent travel. REVIEW OF SYSTEMS: CONSTITUTIONAL: No fever. No chills. No weakness. RESPIRATORY: No cough or sputum production. Patient does have short of breath. CARDIOVASCULAR: No chest pain. Patient does have short of breath and chest discomfort. No leg swelling. ABDOMEN: No nausea or vomiting, abdominal pain. No diarrhea. GENITOURINARY: Negative. ENDOCRINE: Negative. PSYCHIATRIC: Negative. SKIN: Negative. MUSCULOSKELETAL: Negative. All other fourteen-point review of systems negative except as above. PAST MEDICAL HISTORY: Depression. PAST SURGICAL HISTORY: None. SOCIAL HISTORY: The patient denied any history of smoking. Denied any alcohol. Denied any drugs or IVDU. 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 FAMILY HISTORY: No history of hypertension, diabetes mellitus or premature heart disease in the family. ALLERGIES: CEFACLOR, LIDOCAINE AND LORATADINE. Home medications include: 1. Ibuprofen. 2. Spironolactone. 3. Venlafaxine. 4. Benadryl. 5. Patient does take spironolactone for ( ). PHYSICAL EXAMINATION: A 36-year-old male lying in bed comfortably, awake, alert, oriented, x3. Appears to be in no apparent distress. VITALS: Blood pressure is 113/53, pulse is 95, respirations 18, temperature afebrile, pulse ox 97% on room air. HEENT: Atraumatic, normocephalic. Neck is supple. No JVD. CVS: S1, S2 heard. No murmurs or gallop, no rub. LUNGS: Bilateral air entry is present. No wheezing. No crackles. Nonlabored breathing. ABDOMEN: Soft, nontender. Bowel sounds present. MUSEUM DIRECTOR: Awake, alert, oriented, x3. No focal deficit. EXTREMITIES: No edema. Pulses palpable bilaterally. No clubbing or cyanosis. PSYCHIATRIC: Cooperative. LABORATORY DATA: WBC 12.8, hemoglobin 15.7, platelets 307. D-dimer 0.29. Sodium 137, potassium 3.8, chloride 103, bicarb is 20. BUN 15, creatinine 1.2, phosphorus 1.9, NT proBNP is less than 11. Troponin x3 negative. TSH is 2.430. Free T4 1.73. LDL ( ). IMPRESSION: 1. Chest discomfort and shortness of breath. Shortness of breath is exertional. Patient had recent stress test negative. D-dimer negative. CT angiogram showed no pulmonary embolism. CT angiogram also showed 4 mm left upper lobe nodule. Pulmonary has been consulted. Further recommendations awaiting at this time. Otherwise the patient's symptoms are slightly improved. Serial EKGs and troponins are negative. D-dimer is also negative. Patient denied any history of smoking, alcohol, drugs or IVDU. We will continue to monitor the patient and follow up closely. Continue the symptomatic management. 2. Mild leukocytosis. Will recheck tomorrow. No signs of infection noted. 3. Deep venous thrombosis prophylaxis with heparin subcu. DISCUSSION AND PLAN: Patient will be continued on home medications include: Mirapex and spironolactone. The patient takes spironolactone for gender dysphoria. Will continue to follow closely. Further recommendations based on the clinical course. Patient does not have any history of hypertension. MTDD
--- NOTE | 2016-12-28 13:46 | P.PN ---
Subjective This is a 36-year-old male being evaluated and examined today on observation unit. This patient came into the hospital with complaints of worsening shortness of breath with exertion and chest pain. Patient was recently in the hospital for chest pain and had workup done including a stress test which was negative. His d-dimer was also negative at that time and therefore the patient went home. The patient states that the first day home he is feeling okay and the next day he went into work and was having shortness of breath and has caused her sent him to the hospital patient had x-ray done which showed no acute pulmonary process. He also had a CT a done of the chest and was negative for pulmonary embolism. However the CTA did show a 4 mm lung nodule in the left upper lobe. The patient states that he has never had this nodule in the past. He denies any weight loss any recent illness or any loss of appetite. Upon examination the patient is resting up in bed on room air. He states that he still gets short of breath with exertion or ambulation however resting he is breathing fine. Patient states that his chest pain has decreased significantly however it gets elevated with exertion. Cardiology is on consult. Objective - Vital Signs Vital signs: Vital Signs Temp 98.4 F 12/28/16 11:52 Pulse 74 12/28/16 11:52 Resp 16 12/28/16 11:52 BP 99/56 12/28/16 11:52 Pulse Ox 93 L 12/28/16 11:52 Intake & Output 12/27/16 12/28/16 12/28/16 18:59 06:59 18:59 Intake Total 600 125 Balance 600 125 Weight 108.6 kg 108 kg Intake: IV 125 Invasive Line 1 0 Oral 600 Other: Voiding Method Toilet Toilet Toilet # Voids 4 1 - Exam GENERAL EXAM: Alert, active, comfortable in no apparent distress. HEAD: Normocephalic. EYES: Normal reaction of pupils, equal size. NOSE: Clear with pink turbinates. THROAT: No erythema or exudates. NECK: No masses, no JVD. CHEST: No chest wall deformity. LUNGS: Equal air entry with no crackles, wheeze, rhonchi or dullness. Bases diminished CVS: S1 and S2 normal with no audible mumurs, regular rhythm. ABDOMEN: No hepatosplenomegaly, normal bowel sounds, no guarding or rigidity. EXTREMITIES: No edema noted, pedal pulses palpable. SKIN: No rashes CENTRAL NERVOUS SYSTEM: No focal deficits, tone is normal in all 4 extremities. - Labs CBC & Chem 7: 12/28/16 07:33 12/28/16 07:33 Assessment and Plan Plan: Assessment Chest pain, angina History of hyperlipidemia Gender dysphoria History of depression Anxiety Plan Patient could be cleared from a pulmonary standpoint for discharge. Medications have been reviewed and will be continued. Patient will need to have an outpatient sleep study as well as a pulmonary function test. Patient will also require a CT outpatient for follow-up of the left upper lobe nodule. Cardiology on consult appreciate recommendations. We will continue to monitor labs/results and adjust treatment as necessary. I performed an examination of the patient and discussed their management with the nurse practitioner. I have reviewed the nurse practitioner's note and agree with the documented findings and plan of care.
--- NOTE | 2016-12-28 14:26 | CE ---
DATE OF SERVICE: TILT TABLE TEST This is a 36-year-old male patient complaining of dizziness, shortness of breath, chest discomfort while standing. He underwent a 12 lead ECG during chest discomfort which was completely normal. He had a stress test, which was normal. He underwent a tilt table test to look for neurocardiogenic presyncope. Patient was brought to the tilt lab in a fasting state. Written informed consent was obtained prior to the procedure. Baseline blood pressure 127/71 mm of mercury Baseline heart rate 83 beats a minute. He was tilted upright at an angle of 70 degrees per protocol. There was minimal to no change in his blood pressure, however his heart rate increased from the 80s to about 110 to 115 beats a minute and it remains so, sinus tachycardia about 105 to 110 beats a minute. The patient complained of heaviness in the chest shortness of breath, lightheadedness, numbness and tingling in the hand. This episode resembled the episode he experienced while he was doing yard work at least 50% similar but it almost completely resembled and reminded him of the episode at work. IMPRESSION: Orthostatic intolerance. No clear cut episode of any neurocardiogenic syncope. IMPRESSION: It is quite likely that his symptoms are being exacerbated by high does spironolactone use. He takes over 200 mg a day. Either this will have to be reduced or if not then we will have to add Florinef to his symptoms. The other consideration is low dose Nadolol.
--- NOTE | 2016-12-28 15:21 | CONS ---
DATE OF CONSULTATION: 12/27/2016. REASON FOR CONSULTATION: Shortness of breath and palpitation and intermittent chest pain. HISTORY OF PRESENTING ILLNESS: Mr. Guzman Lord is seen, evaluated and examined. This is a 36-year-old male who has been having issues associated with shortness breath and dyspnea on exertion. Symptoms in fact, started about 4 to 5 days ago when he has episode of chest pain. Patient was evaluated extensively with cardiac evaluation stress test as well as a spiral CT scan of the chest, which was negative. A nonspecific 4 mm nodule was seen. No PE was identified. The stress test was negative. The patient chest pain resolved and eventually was discharged. Yesterday, the patient had an episode of shortness of breath which was slightly worse in the last few days. Patient has been having issues associated with palpitation and tachycardia off and on as well. With those problems, patient was brought into the emergency department. Patient was admitted to the hospital. Past medical history is essentially unremarkable except history of some borderline mood disorder, depression. The patient however, has been complaining of some stress situation as well. PAST SURGICAL HISTORY: Unremarkable and noncontributory. ALLERGIES: CECLOR, LIDOCAINE AND LORATADINE. Medications at home include: 1. Effexor 37.5 daily. 2. Advil. 3. Zyrtec. 4. Aldactone. 5. ( ). Current medications in the hospital include above; also on IV fluids 75 mL an hour, nitro bid, multivitamin and aspirin. FAMILY HISTORY AND SOCIAL HISTORY: Denies any smoking, ethanol abuse. 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 Denies any substance use or alcohol consumption. REVIEW OF SYSTEMS: FURNACE ATTENDANT: Denies seizure, ( ), any loss of consciousness, hemiparesis. CARDIORESPIRATORY: As dictated above. Denies any chest pain at this time but he does have mild shortness of breath. Denies any pleuritic component. GI/: Otherwise unremarkable and noncontributory. Musculoskeletal/dermatological: Unremarkable and noncontributory. He does have intermittent history of hiccups and heartburn though. On examination, vitals include blood pressure is ( ). On examination, blood pressure is 130/53, respiratory rate 18, pulse 95, temperature is 98, saturation 97% on 2 liters. HEENT: Otherwise ( ). Pharynx is clear. Narrow pharyngeal opening is present. NECK: Supple without any lymphadenopathy or jugular venous distention or carotid bruit. RESPIRATORY: Bilateral air entry is present without significant rales, rhonchi, or rub. HEART: Regular rate and rhythm. S1 and S2 audible. ABDOMEN: Soft. No rebound or rigidity. EXTREMITIES: +1 peripheral pulses. NEUROLOGICAL EXAMINATION: Otherwise, awake and alert. Labs are reviewed. Medications reviewed. CT scan of the chest with IV contrast; no PE has been identified. Left upper lobe 4 mm nodule. No other significant pathology has been noted. Chest x-ray performed revealed no acute process. LABORATORY DATA: Reviewed. White cell count 12,800, hemoglobin of 15 and hematocrit 46, platelet count of 307,000. PT, INR, PTT within normal limits. D-dimer is 0.2 and 9 chemistry is stable. CO2 of 20, BUN and creatinine 15 and 1.2. Phosphorus is 1.7, total CK ( ) and TSH normal, lipase and amylase is normal as well as troponin x2 less than 0.12. IMPRESSION: 1. Intermittent episodes of chest tightness and pain and shortness of breath. So far no obvious pathology has been identified. Possible chronic asthma cannot be excluded. Would recommend initiating the patient on inhalers and see the response. 2. Possible panic attack and generalized anxiety disorder is there, low dose antianxiety medication can be tried like Xanax. 3. Intermittent tachycardia, occult cardiovascular process like ( ) cannot be excluded. The patient could benefit from a 24-hour event monitor or Holter monitor, however, will defer to cardiovascular service. Patient recommended for ( ) clinically ( ). Further recommendations pending.
--- NOTE | 2016-12-30 17:24 | DS ---
DATE OF ADMISSION: 12/26/2016 DATE OF DISCHARGE: 12/28/2016 Procedure: tilt table test. Cardiology consultation. Pulmonary consultation. DISCHARGE DIAGNOSES: 1. Dizziness thought to be due to orthostatic hypotension and near-syncope. Spironolactone has been discontinued at this time. Patient was seen by Cardiology. Tilt table test showed increased heart rate from the 80s to about 110 to 115 beats per minute and sinus tachycardia. 2. Orthostatic intolerance likely due to high-dose spironolactone use. 3. Lung nodule measuring 4 mm. 4. Chest discomfort, unlikely acute coronary syndrome. Workup including the recent stress test and 2-D echocardiogram negative. HOSPITAL COURSE: Mr. Lord is a 36-year-old male who was recently admitted to hospital with chest discomfort and workup including stress test and 2-D echo was negative. Patient was sent home and came back to hospital with dizziness and near-syncope and shortness of breath. Patient was found to have a 4 mm nodule. Apparently patient knows that he has had this nodule for several years and it has been stable. Patient was recommended to follow up with pulmonary clinic regarding his dizziness and shortness of breath. Patient was seen by Cardiology. Patient had been taking high-dose spironolactone due to gender dysphoria. Patient was suspected to have orthostatic hypotension due to diuretic and reflex tachycardia. Patient underwent tilt table test with showed increased heart rate from 85 to 115, maintained in sinus tachycardia. Cardiology recommended either to decrease the spironolactone or hold the spironolactone, and the other choice would be Florinef or low-dose Nadolol. Currently patient's spironolactone has been discontinued. He was recommended to follow with his primary care physician. The patient is symptomatically much improved and is stable for discharge. DISCHARGE PHYSICAL EXAMINATION: [id number]-old male lying in bed comfortably. Awake, alert and oriented x3. No apparent distress. VITALS: Blood pressure is 133/83, pulse 88, respiration 16, temperature afebrile. Pulse ox is 100% on room air. Laboratory data reviewed. Discharge physical examination done. Discharge medications include: 1. Advil 200 to 400 mg p.o. q.8 hourly p.r.n. for pain. 2. Zyprexa 37.5 mg p.o. daily. 3. Benadryl 25 to 50 mg p.o. at bedtime. 4. Cetirizine 10 mg p.o. daily. 5. Nettle leaf 1 tablet p.o. daily. 6. Citranatal 1 tablet p.o. daily. Patient will be discharged home. Follow up with primary care physician. Follow with Dr. Hooks in one week. Heart-healthy diet. Home with self-care. [facility]
== END 2016-12-28 15:00 | disposition home or self-care (01) ==
LOC: EC 20:21 → 3SUR 23:59 → 3OBS 12-28 07:47
PROVIDERS: ADMIT Hospitalist; ATTEND Hospitalist
DX: R42 Dizziness and giddiness (principal); R91.1 Solitary pulmonary nodule; R07.89 Other chest pain; R06.02 Shortness of breath; R55 Syncope and collapse; R00.0 Tachycardia, unspecified; D72.829 Elevated white blood cell count, unspecified; F39 Unspecified mood [affective] disorder; F32.9 Major depressive disorder, single episode, unspecified; M19.90 Unspecified osteoarthritis, unspecified site; F64.0 Transsexualism; F41.9 Anxiety disorder, unspecified; Z79.899 Other long term (current) drug therapy; Z79.1 Long term (current) use of non-steroidal anti-inflammatories (NSAID); Z88.1 Allergy status to other antibiotic agents; Z88.4 Allergy status to anesthetic agent; Z82.49 Family history of ischemic heart disease and other diseases of the circulatory system
CPT/HCPCS: 96361 ×6; 96374; 96375; 99285; 93005; 93660; 85379; 84439; 83880; 80053; 80048; 82150; 82550 ×2; 82553 ×2; 83690; 83735; 84100; 84443; 84484 ×2; 85025 ×2; 85610; 85730; 71010; 71275; G0378 ×3; J2060; J2270; Q9967; S0197 ×2

== ENCOUNTER → 2017-03-25 | Day surgery (SDC) | payer BC ==
[2017-03-24 10:51] VITALS: BMI 33.9
[~2017-03-25] MED LIST: SODIUM CHLORIDE 0.9% 1,000 ML IV SCH
[2017-03-25 09:55] VITALS: RESP 18; TEMP 98
[2017-03-25 11:22] VITALS: BP 121/72; PULSE 84
--- NOTE | 2017-03-25 11:43 | P.PCN ---
Preoperative Diagnosis: Twelve-lead ECG Sinus mechanism normal heart rates normal cardiac intervals normal ST segments Tilt table test Patient will tilt table test per protocol. A slight blood pressure 124/65 mmHg , Baseline heart rate 87 beats a minute. Patient was tilted upright at an angle of 70 per protocol is no change in heart rate blood pressure no evidence for dysautonomia, orthostatic intolerance or neurocardiogenic syncope Impression Normal heart rate and blood pressure response to upright tilting. Patient complained of chest heaviness chest pain shortness of breath and flushing lightheadedness feeling tired experiencing a headache and heart pounding. All this time, his blood pressure and heart rate was normal and rhythm is normal Postoperative Diagnosis: Procedure(s) Performed: Implants: Disposition: same day Indications for Procedure: Operative Findings: Description of Procedure:
== END ==
LOC: CATHEP 09:33
PROVIDERS: ATTEND Internal Medicine Clinical Cardiac Electrophysiology
DX: R07.89 Other chest pain (principal); R00.0 Tachycardia, unspecified; Z79.899 Other long term (current) drug therapy; Z82.49 Family history of ischemic heart disease and other diseases of the circulatory system; Z88.1 Allergy status to other antibiotic agents; Z88.8 Allergy status to other drugs, medicaments and biological substances
CPT/HCPCS: 93005; 93660

== ENCOUNTER → 2018-09-02 | Outpatient (CLI) | payer BC ==
--- NOTE | 2018-09-02 12:08 | XR ---
EXAMINATION TYPE: XR KUB DATE OF EXAM: 09/02/2018 COMPARISON: 10/10/2010 INDICATION: Left renal colic TECHNIQUE: Single view abdomen supine view FINDINGS: There is a normal bowel gas pattern. Some mild fecal debris is within the ascending colon. Psoas margins are normal. No organomegaly is present. No suspicious calcifications are evident. IMPRESSION: 1. Mild fecal retention. 2. No suspicious renal or ureteral calcifications evident.
== END | disposition home or self-care (01) ==
LOC: RADXRMAIN 11:49
PROVIDERS: ATTEND Urology
DX: K59.00 Constipation, unspecified (principal); N23 Unspecified renal colic
CPT/HCPCS: 74018

== ENCOUNTER → 2020-07-30 | Outpatient (CLI) | payer BC ==
[2020-07-30 09:04] LABS: Basophils % (A) 0 %; Eosinophils # (A) 0.2 k/uL (0-0.7); Eosinophils % (A) 2 %; HCT 44.8 % (39.0-53.0); HGB 14.5 gm/dL (13.0-17.5); Lymphocytes # (A) 2.3 k/uL (1.0-4.8); Lymphocytes % (A) 22 %; MCH 29.2 pg (25.0-35.0); MCHC 32.4 g/dL (31.0-37.0); MCV 90.1 fL (80.0-100.0); Mean Platelet Volume 6.9; Monocytes # (A) 0.5 k/uL (0-1.0); Monocytes % (A) 5 %; Neutrophils # (A) 7.1 k/uL (1.3-7.7); Neutrophils % (A) 70 %; Platelet Count 330 k/uL (150-450); RBC 4.98 m/uL (4.30-5.90); RDW 12.4 % (11.5-15.5); WBC 10.1 k/uL (3.8-10.6)
[2020-07-30 16:56] LABS: Prolactin 8.1 ng/mL (2.1-17.7)
[2020-07-30 16:57] LABS: Estradiol 136.1 pg/mL
[2020-07-30 22:42] LABS: African American GFR (CKD) 108.6 (60.0-200.0); Albumin 4.5 g/dL (3.80-4.90); Albumin/Globulin Ratio 2.05 (1.60-3.17); Anion Gap 8.3 mmol/L (4.00-12.00); Calcium 9.8 mg/dL (8.7-10.3); Carbon Dioxide 26.7 mmol/L (21.6-31.8); Chol/HDL Ratio 3.4; Globulin 2.2 g/dL (1.6-3.3); LDL Cholesterol,Calculated 101.8 mg/dL (0.0-131.0); Non-African American GFR(CKD) 93.7 (60.0-200.0); Potassium 4.1 mmol/L (3.5-5.5); Total Bilirubin 0.4 mg/dL (0.3-1.2); Total Protein 6.7 g/dL (6.2-8.2); VLDL Calculation 25.2 mg/dL (5.00-40.00)
== END | disposition home or self-care (01) ==
LOC: LABWHC1 08:32
PROVIDERS: ATTEND Nurse Practitioner Gerontology
DX: F64.9 Gender identity disorder, unspecified (principal); Z20.9 Contact with and (suspected) exposure to unspecified communicable disease
CPT/HCPCS: 36415; 80053; 80061; 82670; 83036; 84146; 85025; 86780

== ENCOUNTER 2021-02-17 09:24 | Observation (INO) | payer BC, OTHER ==
[2021-02-17] MEDS ORDERED: MORPHINE SULFATE 4 MG/ML SYRINGE IV STA (10:11)
--- NOTE | 2021-02-17 10:15 | ED ---
General Adult HPI - General Chief complaint: Abdominal Pain Stated complaint: Abd pain Time Seen by Provider: 02/17/21 09:48 Source: patient Mode of arrival: ambulatory Limitations: no limitations - History of Present Illness Initial comments: Dictation was produced using DripDrop dictation software. please excuse any grammatical, word or spelling errors. Chief Complaint: 41-year-old male with past medical history depression, degenera tive disc 40, so arthritis presents emergency Department with right upper quadrant abdominal pain History of Present Illness: 41-year-old male he has no significant comorbidities. Patient states that he has had right upper quadrant pain since yesterday. Denies any fever. He is complaining of nausea and vomiting. He states his emesis is bilious. No diarrhea. Patient localizes pain to the right upper quadrant radiation to the back. Patient denies any history of abdominal surgery. Denies any shortness of breath. No pleurisy. He states that he did eat a lot of fatty foods over the weekend. The ROS documented in this emergency department record has been reviewed and confirmed by me. Those systems with pertinent positive or negative responses have been documented in the HPI. All other systems are other negative and/or noncontributory. PHYSICAL EXAM: General Impression: Alert and oriented x3, acute distress secondary to pain HEENT: Normocephalic atraumatic, extra-ocular movements intact, pupils equal and reactive to light bilaterally, mucous membranes moist. Cardiovascular: Heart regular rate and rhythm Chest: Able to complete full sentences, no retractions, no tachypnea Abdomen: abdomen soft, tenderness to the right upper quadrant, non-distended, no organomegaly, positive Matamoros sign Musculoskeletal: Pulses present and equal in all extremities, no peripheral edema Motor: no focal deficits noted Neurological: CN II-XII grossly intact, no focal motor or sensory deficits noted Skin: Intact with no visualized rashes Psych: Normal affect and mood ED course: 41-year-old male presents with right upper quadrant pain. Signs upon arrival are within acceptable limits. Clinical presentation concerning for gallbladder disease. Laboratory evaluation obtained. Leukocytosis 16.9. White count is unremarkable. ALT is 50. Before meals and alk phos are normal. Abdominal ultrasound shows ectopic gallbladder with multiple gallstones in the fundus. No pericholecystic fluid. No gallbladder wall thickening. Patient reevaluated bedside at 12 PM. States that symptoms are improved after IV analgesia but is still persistent.. Disposition options were discussed. Given the patient has elevated white blood cell count with persistent pain there is suspicion of early acute cholecystitis. Patient be admitted to general surgery. Antibiotics initiated. - Related Data Home Medications Medication Instructions Recorded Confirmed Ibuprofen [Advil] 200 - 400 mg PO Q8HR PRN 12/23/16 02/17/21 diphenhydrAMINE [Benadryl] 25 - 50 mg PO HS PRN 12/23/16 02/17/21 ALPRAZolam [Xanax] 0.5 mg PO DAILY PRN 02/17/21 02/17/21 Cetirizine HCl [Zyrtec] 10 mg PO DAILY PRN 02/17/21 02/17/21 Cholecalciferol [Vitamin D3 (25 25 mcg PO DAILY 02/17/21 02/17/21 Mcg = 1000 Iu)] Estradiol [Estrace] 2 mg PO BID 02/17/21 02/17/21 Multivitamins, Thera [Multivitamin 1 tab PO DAILY 02/17/21 02/17/21 (formulary)] busPIRone HCL [Buspar] 7.5 mg PO BID 02/17/21 02/17/21 Allergies Allergy/AdvReac Type Severity Reaction Status Date / Time cefaclor [From Ceclor] AdvReac Rash/Hives Verified 02/17/21 10:19 lidocaine AdvReac SYNCOPE Verified 02/17/21 10:19 loratadine [From Claritin] AdvReac Chest Pain Verified 02/17/21 10:19 Review of Systems ROS Statement: Those systems with pertinent positive or pertinent negative responses have been documented in the HPI. ROS Other: All systems not noted in ROS Statement are negative. Past Medical History Past Medical History: Osteoarthritis (OA) Additional Past Medical History / Comment(s): GENDER DYSPHORIA, DEPRESSION History of Any Multi-Drug Resistant Organisms: None Reported Past Surgical History: No Surgical Hx Reported Additional Past Surgical History / Comment(s): WISDOM TEETH REMOVED,SX ON BELEM GREAT TOES FOR INGROWN TOE NAILS Past Anesthesia/Blood Transfusion Reactions: No Reported Reaction Additional Past Anesthesia/Blood Transfusion Reaction / Comment(s): MOTION SICKNESS CHILD Past Psychological History: Depression Smoking Status: Never smoker Past Alcohol Use History: None Reported Past Drug Use History: None Reported - Past Family History Mother Family Medical History: Myocardial Infarction ([place]) Father Family Medical History: Cancer Additional Family Medical History / Comment(s): LYMPHOMA General Exam Limitations: no limitations Course Vital Signs 02/17/21 02/17/21 09:39 11:10 Temperature 97.4 F L 98.1 F Pulse Rate 74 69 Respiratory 20 18 Rate Blood Pressure 149/92 143/93 O2 Sat by Pulse 99 100 Oximetry Medical Decision Making - Lab Data Result diagrams: 02/17/21 10:30 02/17/21 10:30 Lab Results 02/17/21 02/17/21 Range/Units 10:30 10:30 WBC 16.0 H (3.8-10.6) k/uL RBC 4.91 (4.30-5.90) m/uL Hgb 14.9 (13.0-17.5) gm/dL Hct 43.6 (39.0-53.0) % MCV 88.8 (80.0-100.0) fL MCH 30.4 (25.0-35.0) pg MCHC 34.2 (31.0-37.0) g/dL RDW 12.4 (11.5-15.5) % Plt Count 307 (150-450) k/uL MPV 6.6 Neutrophils % 86 % Lymphocytes % 9 % Monocytes % 4 % Eosinophils % 1 % Basophils % 0 % Neutrophils # 13.8 H (1.3-7.7) k/uL Lymphocytes # 1.4 (1.0-4.8) k/uL Monocytes # 0.6 (0-1.0) k/uL Eosinophils # 0.1 (0-0.7) k/uL Basophils # 0.0 (0-0.2) k/uL Sodium 138 (137-145) mmol/L Potassium 4.5 (3.5-5.1) mmol/L Chloride 105 (98-107) mmol/L Carbon Dioxide 26 (22-30) mmol/L Anion Gap 7 mmol/L BUN 11 (9-20) mg/dL Creatinine 0.90 (0.66-1.25) mg/dL Est GFR (CKD-EPI)AfAm >90 (>60 ml/min/1.73 sqM) Est GFR (CKD-EPI)NonAf >90 (>60 ml/min/1.73 sqM) Glucose 112 H (74-99) mg/dL Calcium 9.6 (8.4-10.2) mg/dL Total Bilirubin 0.5 (0.2-1.3) mg/dL Conjugated Bilirubin 0.0 (0.0-0.3) mg/dL Unconjugated Bilirubin 0.4 (0.0-1.1) mg/dL Delta Bilirubin 0.1 (0.0-0.2) mg/dL AST 37 (17-59) U/L ALT 50 H (4-49) U/L Alkaline Phosphatase 88 (38-126) U/L Total Protein 7.0 (6.3-8.2) g/dL Albumin 4.2 (3.5-5.0) g/dL Lipase 98 (23-300) U/L Disposition Clinical Impression: Abdominal pain, Acute cholecystitis Disposition: ADMITTED IP TO THIS [facility] Condition: Fair Additional Instructions: Your clinical presentation is borderline for acute cholecystitis. It is important that you avoid fatty foods and follow up with general surgery. Please see immediate medical attention if her symptoms acutely worsen especially with fevers and worsening pain. Is patient prescribed a controlled substance at d/c from ED?: Yes If prescribed controlled substance>3 days was MAPS reviewed?: Prescribed <3 Days
[2021-02-17] MEDS ORDERED: ONDANSETRON 4 MG/2 ML VIAL IVP STA (10:32)
[2021-02-17 10:38] LABS: Basophils % (A) 0 %; Eosinophils # (A) 0.1 k/uL (0-0.7); Eosinophils % (A) 1 %; HCT 43.6 % (39.0-53.0); HGB 14.9 gm/dL (13.0-17.5); Lymphocytes # (A) 1.4 k/uL (1.0-4.8); Lymphocytes % (A) 9 %; MCH 30.4 pg (25.0-35.0); MCHC 34.2 g/dL (31.0-37.0); MCV 88.8 fL (80.0-100.0); Mean Platelet Volume 6.6; Monocytes # (A) 0.6 k/uL (0-1.0); Monocytes % (A) 4 %; Neutrophils # (A) 13.8 k/uL (1.3-7.7); Neutrophils % (A) 86 %; Platelet Count 307 k/uL (150-450); RBC 4.91 m/uL (4.30-5.90); RDW 12.4 % (11.5-15.5)
[2021-02-17 10:52] LABS: ALT 50 U/L (4-49); AST 37 U/L (17-59); African American GFR (CKD) >90 (>60 ml/min/1.73 sqM); Albumin 4.2 g/dL (3.5-5.0); Alkaline Phosphatase 88 U/L (38-126); Anion Gap 7 mmol/L; Bilirubin, Delta 0.1 mg/dL (0.0-0.2); Bilirubin,Unconjugated 0.4 mg/dL (0.0-1.1); Blood Urea Nitrogen 11 mg/dL (9-20); Calcium 9.6 mg/dL (8.4-10.2); Carbon Dioxide 26 mmol/L (22-30); Chloride 105 mmol/L (98-107); Glucose 112 mg/dL (74-99); Lipase 98 U/L (23-300); Non-African American GFR(CKD) >90 (>60 ml/min/1.73 sqM); Potassium 4.5 mmol/L (3.5-5.1); Sodium 138 mmol/L (137-145); Total Bilirubin 0.5 mg/dL (0.2-1.3)
[2021-02-17] MEDS ORDERED: HYDROmorphone 0.5 MG/0.5 ML SYRINGE IVP STA (11:26)
--- NOTE | 2021-02-17 11:35 | US ---
EXAMINATION TYPE: US abdomen limited DATE OF EXAM: 02/17/2021 COMPARISON: NONE CLINICAL HISTORY: abdominal pain. Abdomen pain and N/V EXAM MEASUREMENTS: Liver Length: 17.4 cm Gallbladder Wall: 0.2 cm CBD: 0.4 cm Right Kidney: 10.8 x 5.1 x 5.3 cm Pancreas: obscured by overlying midline bowel gas Liver: measures in upper limits of normal, mildly heterogeneous Gallbladder: hydropic, multiple stones within fundus Evidence for sonographic Matamoros's sign: yes CBD: visualized portions wnl, limited by overlying bowel gas Right Kidney: wnl IMPRESSION: 1. The pancreas is obscured due to overlying bowel gas. 2. No discrete hepatic mass or intrahepatic biliary dilatation on the sonographic study. Mildly heter ogeneous hepatic parenchyma seen. 3. No right renal calculi or hydronephrosis. 4. Multiple gallstones within the fundus. Hydropic gallbladder. Gallbladder wall is within normal barroso its. No pericholecystic fluid. Patient is positive for sonographic Matamoros's sign. Clinical correlatio n for acute/chronic cholecystitis is recommended. 5. The common duct is within normal limits in size at the visualized portions. Bowel gas partially ob scures common duct.
[2021-02-17] MEDS ORDERED: NALOXONE 0.4 MG/ML 1 ML VIAL IV PRN (12:12)
[2021-02-17] MEDS ORDERED: ACETAMINOPHEN TAB 325 MG TAB PO PRN (12:12)
[2021-02-17] MEDS ORDERED: ONDANSETRON 4 MG/2 ML VIAL IVP PRN (12:12)
[2021-02-17] MEDS ORDERED: metroNIDAZOLE-NS PMX 500 MG in SALINE 1 100ML.BAG IVPB STA (12:12)
[2021-02-17] MEDS: LEVOFLOXACIN 750MG-D5W PMX 750 MG in DEXTROSE/WATER 1 150ML.BAG IVPB STA ×2 (12:33→14:46)
[2021-02-17] MEDS: SODIUM CHLORIDE 0.9% 1,000 ML IV SCH (12:39)
[2021-02-17] MEDS: HYDROmorphone 1 MG/ML 1 ML SYRINGE IVP PRN ×3 (14:19→20:34)
[2021-02-17] MEDS ORDERED: LEVOFLOXACIN 750MG-D5W PMX 750 MG in DEXTROSE/WATER 1 150ML.BAG IVPB STA (14:29)
[2021-02-17] MEDS ORDERED: IBUPROFEN 400 MG TAB PO PRN (20:13)
[2021-02-17] MEDS ORDERED: ALPRAZolam 0.5 MG TAB PO PRN (20:13)
[2021-02-17] MEDS ORDERED: diphenhydrAMINE 25 MG CAP PO PRN (20:13)
[2021-02-17] MEDS ORDERED: CETIRIZINE HCL 10 MG PO PRN (20:13)
[2021-02-17] MEDS: busPIRone HCl 5 MG TAB PO SCH (21:03)
[2021-02-18] MEDS: SODIUM CHLORIDE 0.9% 1,000 ML IV SCH ×6 (00:10→21:07)
[2021-02-18] MEDS: HYDROmorphone 1 MG/ML 1 ML SYRINGE IVP PRN ×4 (01:03→21:02)
[2021-02-18] MEDS: CHOLECALCIFEROL 25 MCG (1000 IU) TABLET PO SCH (07:27)
[2021-02-18] MEDS: MULTIVITAMINS, THERA 1 EACH TAB PO SCH (07:27)
[2021-02-18] MEDS: busPIRone HCl 5 MG TAB PO SCH ×2 (07:33→21:05)
--- NOTE | 2021-02-18 10:41 | P.GSHP ---
History of Present Illness H&P Date: 02/18/21 CHIEF COMPLAINT: Right upper quadrant abdominal pain HISTORY OF PRESENT ILLNESS: This is a 41-year-old male with a known history of osteoarthritis and depression. Surgical history of orchiectomy.. He presents to the hospital with complaints of right upper quadrant abdominal pain. He reports the symptoms started Wednesday around 11 PM in the evening. Patient reports throughout that day he had been eating junk food and [employer]. He complains of sharp right upper quadrant abdominal pain with nausea and vomiting. The emesis had been bile in color and just 1 episode. He denies any fever, chi lls or sweats. He did try to take pain medication at home without any relief. He reports having symptoms about 2 weeks ago after eating greasy hamburger symptoms lasted for about 2 hours and resolved on their own. This time symptoms were not resolving. He had a abdominal ultrasound completed showing multiple gallstones within the fundus. Hydropic gallbladder. Gallbladder wall was then normal limits. No pericholecystic fluid. Positive sonographic Matamoros sign. Clinical correlation for acute/chronic cholecystitis recommended., Mild duct is within normal limits. Patient admitted to the hospital for acute cholecystitis. He is scheduled for surgery today. No prior cardiac history.- PAST MEDICAL HISTORY: See list. PAST SURGICAL HISTORY: See list. MEDICATIONS: See list. ALLERGIES: See list. SOCIAL HISTORY: No illicit drug use. REVIEW OF SYSTEMS: CONSTITUTIONAL: Denies fever or chills. HEENT: Denies blurred vision, vision changes, or eye pain. Denies hemoptysis CARDIOVASCULAR: Denies chest pain or pressure. RESPIRATORY: No shortness of breath. GASTROINTESTINAL: See HPI for pertinent findings HEMATOLOGIC: Denies bleeding disorders. GENITOURINARY: Denies any blood in urine or increased urinary frequency. SKIN: Denies pruitis. Denies rash. PHYSICAL EXAM: VITAL SIGNS: Reviewed GENERAL: Well-developed in no acute distress. HEENT: No sclera icterus. Extraocular movements grossly intact. Moist buccal mucosa. Head is atraumatic, normocephalic. No nasal drainage. ABDOMEN: Soft. Nondistended. Right upper quadrant tenderness NEUROLOGIC: Alert and oriented. Cranial nerves II through XII grossly intact. LABORATORY DATA: WBC 16 hemoglobin 14.9 and platelets 307 sodium 138 potassium 4.5 creatinine 0.90 ALT 50 lipase 98 IMAGING: Imaging as stated above ASSESSMENT: 1. Acute cholecystitis PLAN: -Patient is scheduled for laparoscopic cholecystectomy today with Dr. Singh -Keep patient nothing by mouth -Continue pain medication as needed -Continue IV fluids and IV antibiotics. Physician Cane Stripper note has been reviewed by physician. Signing provider agrees with the documented findings, assessment, and plan of care. Past Medical History Past Medical History: Osteoarthritis (OA) Additional Past Medical History / Comment(s): GENDER DYSPHORIA, DEPRESSION History of Any Multi-Drug Resistant Organisms: None Reported Past Surgical History: No Surgical Hx Reported Additional Past Surgical History / Comment(s): WISDOM TEETH REMOVED,SX ON BELEM GREAT TOES FOR INGROWN TOE NAILS,orchiectomy Past Anesthesia/Blood Transfusion Reactions: No Reported Reaction Additional Past Anesthesia/Blood Transfusion Reaction / Comment(s): MOTION SICKNESS CHILD Past Psychological History: Depression Additional Psychological History / Comment(s): PT STATED THAT HE FEELS WELL MAINTAINED ON HIS CURRENT MEDS.PT IS INDEPENDANT,NO SERVICE, WORKS A [employer] IN[employer] FOR [employer].LIVES WITH HIS AND 2 CHILDREN,1 DOG, 2 FISH IN A HOME THAT HAS NO STEPS IN WHICH TO ENTER. Smoking Status: Never smoker Past Alcohol Use History: None Reported Past Drug Use History: None Reported - Past Family History Mother Family Medical History: Myocardial Infarction ([place]) Father Family Medical History: Cancer Additional Family Medical History / Comment(s): LYMPHOMA Medications and Allergies Home Medications Medication Instructions Recorded Confirmed Type Ibuprofen [Advil] 200 - 400 mg PO Q8HR PRN 12/23/16 02/17/21 History diphenhydrAMINE [Benadryl] 25 - 50 mg PO HS PRN 12/23/16 02/17/21 History ALPRAZolam [Xanax] 0.5 mg PO DAILY PRN 02/17/21 02/17/21 History Cetirizine HCl [Zyrtec] 10 mg PO DAILY PRN 02/17/21 02/17/21 History Cholecalciferol [Vitamin D3 (25 25 mcg PO DAILY 02/17/21 02/17/21 History Mcg = 1000 Iu)] Estradiol [Estrace] 2 mg PO BID 02/17/21 02/17/21 History Multivitamins, Thera [Multivitamin 1 tab PO DAILY 02/17/21 02/17/21 History (formulary)] busPIRone HCL [Buspar] 7.5 mg PO BID 02/17/21 02/17/21 History Allergies Allergy/AdvReac Type Severity Reaction Status Date / Time cefaclor [From Ceclor] AdvReac Rash/Hives Verified 02/17/21 13:38 lidocaine AdvReac SYNCOPE Verified 02/17/21 13:38 loratadine [From Claritin] AdvReac Chest Pain Verified 02/17/21 13:38 Surgical - Exam Vital Signs Temp Pulse Resp BP Pulse Ox 97.4 F L 74 20 149/92 99 02/17/21 09:39 02/17/21 09:39 02/17/21 09:39 02/17/21 09:39 02/17/21 09:39 Results - Labs 02/17/21 10:30 02/17/21 10:30 Abnormal Lab Results - Last 24 Hours (Table) 02/17/21 02/17/21 Range/Units 10:30 10:30 WBC 16.0 H (3.8-10.6) k/uL Neutrophils # 13.8 H (1.3-7.7) k/uL Glucose 112 H (74-99) mg/dL ALT 50 H (4-49) U/L Diabetes panel 02/17/21 Range/Units 10:30 Sodium 138 (137-145) mmol/L Potassium 4.5 (3.5-5.1) mmol/L Chloride 105 (98-107) mmol/L Carbon Dioxide 26 (22-30) mmol/L BUN 11 (9-20) mg/dL Creatinine 0.90 (0.66-1.25) mg/dL Glucose 112 H (74-99) mg/dL Calcium 9.6 (8.4-10.2) mg/dL AST 37 (17-59) U/L ALT 50 H (4-49) U/L Alkaline Phosphatase 88 (38-126) U/L Total Protein 7.0 (6.3-8.2) g/dL Albumin 4.2 (3.5-5.0) g/dL Calcium panel 02/17/21 Range/Units 10:30 Calcium 9.6 (8.4-10.2) mg/dL Albumin 4.2 (3.5-5.0) g/dL Pituitary panel 02/17/21 Range/Units 10:30 Sodium 138 (137-145) mmol/L Potassium 4.5 (3.5-5.1) mmol/L Chloride 105 (98-107) mmol/L Carbon Dioxide 26 (22-30) mmol/L BUN 11 (9-20) mg/dL Creatinine 0.90 (0.66-1.25) mg/dL Glucose 112 H (74-99) mg/dL Calcium 9.6 (8.4-10.2) mg/dL Adrenal panel 02/17/21 Range/Units 10:30 Sodium 138 (137-145) mmol/L Potassium 4.5 (3.5-5.1) mmol/L Chloride 105 (98-107) mmol/L Carbon Dioxide 26 (22-30) mmol/L BUN 11 (9-20) mg/dL Creatinine 0.90 (0.66-1.25) mg/dL Glucose 112 H (74-99) mg/dL Calcium 9.6 (8.4-10.2) mg/dL Total Bilirubin 0.5 (0.2-1.3) mg/dL AST 37 (17-59) U/L ALT 50 H (4-49) U/L Alkaline Phosphatase 88 (38-126) U/L Total Protein 7.0 (6.3-8.2) g/dL Albumin 4.2 (3.5-5.0) g/dL
[2021-02-18] MEDS ORDERED: HEPARIN SODIUM,PORCINE/PF 5,000 UNIT/0.5 ML SYRINGE SQ ONE (11:48)
[2021-02-18] MEDS ORDERED: DEXAMETHASONE SOD PHOSPHATE 4 MG/ML 1 ML VIAL IV ONE (11:53)
[2021-02-18] MEDS ORDERED: ONDANSETRON 4 MG/2 ML VIAL IVP ONE (11:53)
[2021-02-18] MEDS: metroNIDAZOLE-NS PMX 500 MG in SALINE 1 100ML.BAG IVPB SCH ×3 (11:58→21:06)
[2021-02-18] MEDS ORDERED: KETOROLAC 15 MG/ML 1 ML VIAL ONE (12:43)
[2021-02-18] MEDS ORDERED: PROPOFOL 10 MG/ML 20 ML VIAL IV ONE (12:43)
[2021-02-18] MEDS ORDERED: ePHEDrine SULFATE/0.9% NACL/PF 50 MG/5 ML SYRINGE IV ONE (12:43)
[2021-02-18] MEDS ORDERED: MIDAZOLAM 2 MG/2 ML VIAL ONE (12:43)
[2021-02-18] MEDS ORDERED: fentaNYL (PF) 50 MCG/ML 2 ML AMP ONE (12:43)
[2021-02-18] MEDS ORDERED: GLYCOPYRROLATE 0.2 MG/ML 2 ML VIAL ONE (12:43)
[2021-02-18] MEDS ORDERED: NEOSTIGMINE 1 MG/ML 10 ML VIAL ONE (12:43)
[2021-02-18] MEDS ORDERED: KETAMINE 10 MG/ML 20 ML VIAL ONE (12:43)
[2021-02-18] MEDS ORDERED: ROCURONIUM 10 MG/ML (5 ML VIAL) IV ONE (12:43)
[2021-02-18] MEDS ORDERED: HYDROmorphone (PF) 1 MG/ML ONE (12:43)
[2021-02-18] MEDS ORDERED: BUPIVACAINE (PF) 0.5% 30 ML VIAL SQ ONE (13:08)
[2021-02-18] MEDS ORDERED: LACTATED RINGERS 1,000 ML IV ONE (13:08)
--- NOTE | 2021-02-18 13:44 | P.OP ---
Date of Procedure: 02/18/21 Preoperative Diagnosis: Acute cholecystitis Postoperative Diagnosis: Acute cholecystitis Procedure(s) Performed: Laparoscopic cholecystectomy Anesthesia: ABDULAZIZ Surgeon: Valentin Singh Estimated Blood Loss (ml): 5 Pathology: other (Gallbladder) Condition: stable Disposition: PACU Description of Procedure: The patient was placed on the operating table. The patient received a general endotracheal tube anesthesia. The patients abdomen was prepped and draped in the usual sterile fashion. Through an infraumbilical stab incision, the fascia of the anterior abdominal wall was grasped with a pair of Kochers and then the Veress needle was placed in the peritoneal cavity. Position of the Veress needle was confirmed with positive drop test. The abdomen was then insufflated. After adequate insufflation, the 10 mm trocar was placed in the peritoneal cavity. Following this the laparoscope was placed in the peritoneal cavity. The patient was placed in the head-up, right side up position and then a 5 mm trocar was placed in the right lateral and right subcostal position under direct visualization. A 8 mm trocar was placed in the epigastric position. The gallbladder was grasped in the fundus and infundibulum. Traction on the gallbladder was placed in the lateral and the cephalad positions. The triangle of Calot was visualized.. The cystic duct was bluntly dissected until the union of the cystic duct and common bile duct was seen. A critical view of safety was achieved. The cystic duct was then divided and sealed with the Harmonic scissors. A PDS Endoloop was then placed throughout the cystic duct stump. The cystic artery divided and sealed with the Harmonic scissors. The gallbladder was then removed from the liver bed using Harmonic scissors. The gallbladder was then extracted through the epigastric port site. Operative field was checked for any bleeding spots and Harmonic scissors was used to coagulate the liver bed. The abdomen was irrigated. The trocars were removed. The skin was closed using interrupted 3-0 Vicryl suture. Dermabond dressing were applied. The patient tolerated the procedure well.
[2021-02-18] MEDS ORDERED: LEVOFLOXACIN 500MG-D5W PMX 500 MG in DEXTROSE/WATER 1 100ML.BAG IVPB SCH (15:00)
--- NOTE | 2021-02-18 16:57 | P.CON ---
Consult Note - . Consult date: 02/18/21 Assessment/Plan:: Reason for consult - management of chronic medical conditions Pop is a 41-year-old person who is undergoing gender transformation, osteoarthritis, depression coming in with a chief complaint of right upper quadrant abdominal pain. Pain started in the right upper quadrant, associated with nausea and vomiting. Reports the vomiting is bilateral in color. No fever chills or rigors, 2 packs some pain medications at home without much relief. Reports similar episode happening couple of weeks back, symptoms resolving without any intervention. Patient denied having any chest pain or palpitations. No cough or difficulty in breathing. No dysuria or hematuria. Denies having any headaches, blurring of vision or weakness in extremities. In the ER, vital signs at the time of admission temperature 97.4, heart rate 74, respiratory rate 20, blood pressure 149/92, saturating at 95% on room air. Labs show white count of 16, hemoglobin 14.9, platelets 307. Sodium 138, potassium 4.5, chloride 104, bicarbonate 26, BUN 11, creatinine 0.90. AST 37, AST 50, alkaline phosphatase 88, bilirubin 0.5. Patient underwent ultrasound of the abdomen, showed multiple gallstones within the fundus, hydropic gallbladder. Pop underwent laparoscopic cholecystectomy for acute cholecystitis this morning and now comfortably lying in bed with some abdominal soreness. REVIEW OF SYSTEMS: CONSTITUTIONAL: No fever, no malaise, no fatigue. HEENT: No headache, no neck stiffness, no blurring of vision CARDIOVASCULAR: No chest pain or palpitations PULMONARY: No cough or difficulty in breathing GASTROINTESTINAL: As per HPI NEUROLOGICAL: No weakness of extremities HEMATOLOGICAL: Denies any bleeding or petechiae. GENITOURINARY: Denies any burning micturition, frequency, or urgency. MUSCULOSKELETAL/RHEUMATOLOGICAL: Denies any joint pain, swelling, or any muscle pain. ENDOCRINE: Denies polyuria polydipsia or heat or cold intolerance The rest of the 14-point review of systems is negative. Past Medical History Past Medical History: Osteoarthritis (OA) Additional Past Medical History / Comment(s): GENDER DYSPHORIA, DEPRESSION History of Any Multi-Drug Resistant Organisms: None Reported Past Surgical History: No Surgical Hx Reported Additional Past Surgical History / Comment(s): WISDOM TEETH REMOVED,SX ON BELEM GREAT TOES FOR INGROWN TOE NAILS,orchiectomy Past Anesthesia/Blood Transfusion Reactions: No Reported Reaction Additional Past Anesthesia/Blood Transfusion Reaction / Comment(s): MOTION SICKNESS CHILD Past Psychological History: Depression Additional Psychological History / Comment(s): PT STATED THAT HE FEELS WELL MAINTAINED ON HIS CURRENT MEDS.PT IS INDEPENDANT,NO SERVICE, WORKS A [employer] FOR [employer].LIVES WITH HIS AND 2 CHILDREN,1 DOG, 2 FISH IN A HOME THAT HAS NO STEPS IN WHICH TO ENTER. Smoking Status: Never smoker Past Alcohol Use History: None Reported Past Drug Use History: None Reported - Past Family History Mother Family Medical History: Myocardial Infarction ([place]) Father Family Medical History: Cancer Additional Family Medical History / Comment(s): LYMPHOMA Medications and Allergies Home Medications Medication Instructions Recorded Confirmed Type Ibuprofen [Advil] 200 - 400 mg PO Q8HR PRN 12/23/16 02/17/21 History diphenhydrAMINE [Benadryl] 25 - 50 mg PO HS PRN 12/23/16 02/17/21 History ALPRAZolam [Xanax] 0.5 mg PO DAILY PRN 02/17/21 02/17/21 History Cetirizine HCl [Zyrtec] 10 mg PO DAILY PRN 02/17/21 02/17/21 History Cholecalciferol [Vitamin D3 (25 25 mcg PO DAILY 02/17/21 02/17/21 History Mcg = 1000 Iu)] Estradiol [Estrace] 2 mg PO BID 02/17/21 02/17/21 History Multivitamins, Thera [Multivitamin 1 tab PO DAILY 02/17/21 02/17/21 History (formulary)] busPIRone HCL [Buspar] 7.5 mg PO BID 02/17/21 02/17/21 History Allergies Allergy/AdvReac Type Severity Reaction Status Date / Time cefaclor [From Ceclor] AdvReac Rash/Hives Verified 02/17/21 13:38 lidocaine AdvReac SYNCOPE Verified 02/17/21 13:38 loratadine [From Claritin] AdvReac Chest Pain Verified 02/17/21 13:38 Physical Exam Vitals: Vital Signs Temp Pulse Pulse Resp BP Pulse Ox 02/18/21 15:25 98.7 F 79 18 125/75 95 02/18/21 14:00 85 16 116/62 93 L 02/18/21 13:45 86 16 120/66 98 02/18/21 13:29 99 F 93 12 130/69 96 02/18/21 11:37 97.2 F L 90 16 121/66 97 02/18/21 04:58 98.4 F 91 16 114/76 96 02/17/21 20:23 97.8 F 98 16 141/80 97 Intake and Output 02/18/21 02/18/21 02/18/21 06:59 14:59 22:59 Intake Total 2237 400 Balance 2237 400 Intake: IV 400 Intake, IV Titration 1560 Amount Sodium Chloride 0.9% 1, 1560 000 ml @ 130 mls/hr IV . Q7H42M DOMO Rx#:[id number] Oral 677 Other: # Voids 3 PHYSICAL EXAMINATION: GENERAL: Comfortably lying up in the bed appears to be no acute distress. HEENT: Pupils are round and equally reacting to light. EOMI. No scleral icterus. No conjunctival pallor. CARDIOVASCULAR: S1 and S2 present. No murmurs, rubs, or gallops. PULMONARY: Bilateral breath sounds positive. No wheeze or crackles.. ABDOMEN: Dressing in place, looks dry and clean, hypoactive bowel sounds. MUSCULOSKELETAL: No joint swelling or deformity. EXTREMITIES: No edema NEUROLOGICAL: Gross neurological examination did not reveal any focal deficits. SKIN:No rash Results CBC & Chem 7: 02/17/21 10:30 02/17/21 10:30 Thrombosis Risk Factor Assmnt - Choose All That Apply Each Factor Represents 1 point: Age 41-60 years, Minor surgery planned, Obesity (BMI >25) Other Risk Factors: No Other congenital or acquired thrombophilia - If yes, enter type in comment: No Thrombosis Risk Factor Assessment Total Risk Factor Score: 3 Thrombosis Risk Factor Assessment Level: Moderate Risk ASSESSMENT Acute cholecystitis status post laparoscopic cholecystectomy on 02/18/2021 Leukocytosis-secondary to above Mild transaminitis Multiple joint osteoarthritis Gender transformation//dysphoria History of depression PLAN: Status post laparoscopic cholecystectomy on 02/18/2021 Continue with antibiotics in the form of Flagyl and Levaquin Repeat a.m. labs Pain management as per primary care team Patient started on home medications Encourage early ambulation and incentive spirometry Further recommendations depending on the progress of the patient Thank you for the consultation.
[2021-02-19] MEDS: HYDROmorphone 1 MG/ML 1 ML SYRINGE IVP PRN (02:26)
[2021-02-19] MEDS: SODIUM CHLORIDE 0.9% 1,000 ML IV SCH ×2 (02:33→08:31)
[2021-02-19] MEDS: metroNIDAZOLE-NS PMX 500 MG in SALINE 1 100ML.BAG IVPB SCH ×2 (03:37→11:53)
[2021-02-19 05:21] VITALS: BP 101/65; PULSE 83; RESP 16; TEMP 97.8
[2021-02-19 05:43] LABS: Basophils % (A) 0 %; Eosinophils % (A) 0 %; HCT 32.8 % (39.0-53.0); Lymphocytes # (A) 2.1 k/uL (1.0-4.8); Lymphocytes % (A) 16 %; MCH 31.4 pg (25.0-35.0); MCHC 34.8 g/dL (31.0-37.0); MCV 90.1 fL (80.0-100.0); Mean Platelet Volume 6.9; Monocytes # (A) 0.7 k/uL (0-1.0); Monocytes % (A) 6 %; Neutrophils # (A) 9.9 k/uL (1.3-7.7); Neutrophils % (A) 76 %; Platelet Count 243 k/uL (150-450); RBC 3.64 m/uL (4.30-5.90); RDW 12.5 % (11.5-15.5); WBC 12.9 k/uL (3.8-10.6)
[2021-02-19 05:56] LABS: African American GFR (CKD) >90 (>60 ml/min/1.73 sqM); Anion Gap 3 mmol/L; Blood Urea Nitrogen 6 mg/dL (9-20); Calcium 7.9 mg/dL (8.4-10.2); Carbon Dioxide 28 mmol/L (22-30); Chloride 105 mmol/L (98-107); Glucose 92 mg/dL (74-99); Non-African American GFR(CKD) >90 (>60 ml/min/1.73 sqM); Sodium 136 mmol/L (137-145)
[2021-02-19 06:23] LABS: HGB 11.4 gm/dL (13.0-17.5)
[2021-02-19] MEDS ORDERED: HYDROcodone/APAP 5-325MG 1 EACH TAB PO PRN (08:05)
[2021-02-19] MEDS: CHOLECALCIFEROL 25 MCG (1000 IU) TABLET PO SCH (08:28)
[2021-02-19] MEDS: MULTIVITAMINS, THERA 1 EACH TAB PO SCH (08:28)
[2021-02-19] MEDS: busPIRone HCl 5 MG TAB PO SCH (08:29)
--- NOTE | 2021-02-19 12:09 | P.DS ---
Providers Date of admission: 02/17/21 12:34 Expected date of discharge: 02/19/21 Attending physician: Valentin Singh Consults: 02/18/21 13:44 Consult Physician Routine Consulting Provider: Zoila Montez Consult Reason/Comments: Medical management Do you want consulting provider notified?: Yes Primary care physician: Physician Nonstaff Hospital Course: Discharge diagnosis 1. Acute cholecystitis status post laparoscopic cholecystectomy Hospital course his is a 41-year-old male with a known history of osteoarthritis and depression. Surgical history of orchiectomy.. He presents to the hospital with complaints of right upper quadrant abdominal pain. He reports the symptoms started Wednesday around 11 PM in the evening. Patient reports throughout that day he had been eating junk food and [employer]. He complains of sharp right upper quadrant abdominal pain with nausea and vomiting. The emesis had been bile in color and just 1 episode. He denies any fever, chills or sweats. He did try to take pain medication at home without any relief. He reports having symptoms about 2 weeks ago after eating greasy hamburger symptoms lasted for about 2 hours and resolved on their own. This time symptoms were not resolving. He had a abdominal ultrasound completed showing multiple gallstones within the fundus. Hydropic gallbladder. Gallbladder wall was then normal limits. No pericholecystic fluid. Positive sonographic [place] sign. Clinical correlation for acute/chronic cholecystitis recommended., Mild duct is within normal limits. Patient admitted to the hospital for acute cholecystitis. Patient is status post laparoscopic cholecystectomy. He tolerated surgery well. His pain is controlled. He is tolerating diet. He is having flatus. He is afebrile. He has been up and ambulating. He is stable for discharge. Please refer to chart for any further details. Physician Nurses Educator note has been reviewed by physician. Signing provider agrees with the documented findings, assessment, and plan of care. Patient Condition at Discharge: Stable Plan - Discharge Summary Discharge Rx Participant: No New Discharge Prescriptions: New Docusate [Colace] 100 mg PO BID #30 capsule HYDROcodone/APAP 5-325MG [[place] 5-325] 1 tab PO Q6HR PRN 3 Days #12 tab PRN Reason: Pain Continue diphenhydrAMINE [Benadryl] 25 - 50 mg PO HS PRN PRN Reason: Allergy Symptoms Ibuprofen [Advil] 200 - 400 mg PO Q8HR PRN PRN Reason: Pain busPIRone HCL [Buspar] 7.5 mg PO BID Cetirizine HCl [Zyrtec] 10 mg PO DAILY PRN PRN Reason: Allergy Symptoms ALPRAZolam [Xanax] 0.5 mg PO DAILY PRN PRN Reason: Anxiety Multivitamins, Thera [Multivitamin (formulary)] 1 tab PO DAILY Cholecalciferol [Vitamin D3 (25 Mcg = 1000 Iu)] 25 mcg PO DAILY Estradiol [Estrace] 2 mg PO BID Discharge Medication List Ibuprofen [Advil] 200 - 400 mg PO Q8HR PRN 12/23/16 [History] diphenhydrAMINE [Benadryl] 25 - 50 mg PO HS PRN 12/23/16 [History] ALPRAZolam [Xanax] 0.5 mg PO DAILY PRN 02/17/21 [History] Cetirizine HCl [Zyrtec] 10 mg PO DAILY PRN 02/17/21 [History] Cholecalciferol [Vitamin D3 (25 Mcg = 1000 Iu)] 25 mcg PO DAILY 02/17/21 [History] Estradiol [Estrace] 2 mg PO BID 02/17/21 [History] Multivitamins, Thera [Multivitamin (formulary)] 1 tab PO DAILY 02/17/21 [History] busPIRone HCL [Buspar] 7.5 mg PO BID 02/17/21 [History] Docusate [Colace] 100 mg PO BID #30 capsule 02/19/21 [Rx] HYDROcodone/APAP 5-325MG [[place] 5-325] 1 tab PO Q6HR PRN 3 Days #12 tab 02/19/21 [Rx] Follow up Appointment(s)/Referral(s): Valentin Singh MD [STAFF PHYSICIAN] - 1 Week Patient Instructions/Handouts: *Surgery [facility] - Laparoscopic Cholecystectomy Discharge Instructions, *Surgery [facility] - (Anesthesia) Discharge Instructions Outpatient Surgery Activity/Diet/Wound Care/Special Instructions: No driving while taking Columbia No lifting over 10 pounds You may shower. No soaking or tub baths for 2 weeks Very light activity until you are reevaluated at your follow up appointment with your surgeon Discharge Disposition: HOME SELF-CARE
--- NOTE | 2021-02-20 00:45 | P.PN ---
Subjective Progress Note Date: 02/19/21 Principal diagnosis: S/p Cholecyestctomy Pop is a 41-year-old person who is undergoing gender transformation, osteoarthritis, depression coming in with a chief complaint of right upper quadrant abdominal pain. Pain started in the right upper quadrant, associated with nausea and vomiting. Reports the vomiting is bilateral in color. No fever chills or rigors, 2 packs some pain medications at home without much relief. Reports similar episode happening couple of weeks back, symptoms resolving without any intervention. Patient denied having any chest pain or palpitations. No cough or difficulty in breathing. No dysuria or hematuria. Denies having any headaches, blurring of vision or weakness in extremities. In the ER, vital signs at the time of admission temperature 97.4, heart rate 74, respiratory rate 20, blood pressure 149/92, saturating at 95% on room air. Labs show white count of 16, hemoglobin 14.9, platelets 307. Sodium 138, potassium 4.5, chloride 104, bicarbonate 26, BUN 11, creatinine 0.90. AST 37, AST 50, alkaline phosphatase 88, bilirubin 0.5. Patient underwent ultrasound of the abdomen, showed multiple gallstones within the fundus, hydropic gallbladder. Pop underwent laparoscopic cholecystectomy on 02/18/2021 for acute cholecystitis - comfortably lying in bed with some abdominal soreness. On 02/19/2021 -patient is seen and examined at the bedside. He is comfortably sitting up in his bed appears to be in no acute distress. Denied having any abdominal pain nausea vomiting or diarrhea. No chest pain or palpitations. No cough or difficulty in breathing. He mentions that they are ready for discharge. Objective - Vital Signs Vital signs: Vital Signs Temp 97.8 F 02/19/21 05:00 Pulse 83 02/19/21 05:00 Resp 16 02/19/21 05:00 BP 101/65 02/19/21 05:00 Pulse Ox 95 02/19/21 05:00 Intake & Output 02/18/21 02/19/21 02/19/21 18:59 06:59 18:59 Intake Total 2180 Balance 2180 Intake: IV 400 Intake, IV Titration 1200 Amount Levofloxacin 500Mg-D5w 100 Pmx 500 mg In Dextrose/ Water 1 100ml.bag @ 100 mls/hr IVPB Q24H [facility] Rx#: [id number] Sodium Chloride 0.9% 1, 1000 000 ml @ 130 mls/hr IV . Q7H42M [facility] Rx#:[id number] metroNIDAZOLE-NS PMX 500 100 mg In Saline 1 100ml.bag @ 100 mls/hr IVPB Q8H [facility] Rx#:[id number] Oral 580 Other: Voiding Method Toilet # Voids 4 2 - Exam PHYSICAL EXAMINATION: GENERAL: Comfortably lying up in the bed appears to be no acute distress. CARDIOVASCULAR: S1 and S2 present. No murmurs, rubs, or gallops. PULMONARY: Bilateral breath sounds positive. No wheeze or crackles.. ABDOMEN: Dressing in place, looks dry and clean, hypoactive bowel sounds. EXTREMITIES: No edema NEUROLOGICAL: Gross neurological examination did not reveal any focal deficits. - Labs CBC & Chem 7: 02/19/21 05:09 02/19/21 05:09 Labs: Abnormal Lab Results - Last 24 Hours (Table) 02/19/21 02/19/21 Range/Units 05:09 05:09 WBC 12.9 H (3.8-10.6) k/uL RBC 3.64 L (4.30-5.90) m/uL Hgb 11.4 L D (13.0-17.5) gm/dL Hct 32.8 L (39.0-53.0) % Neutrophils # 9.9 H (1.3-7.7) k/uL Sodium 136 L (137-145) mmol/L BUN 6 L (9-20) mg/dL Calcium 7.9 L (8.4-10.2) mg/dL Assessment and Plan Assessment: ASSESSMENT Acute cholecystitis status post laparoscopic cholecystectomy on 02/18/2021 Acute Blood loss anemia - post op complication expected Leukocytosis-secondary to above- trending down Mild transaminitis Multiple joint osteoarthritis Gender transformation/dysphoria History of depression PLAN: Status post laparoscopic cholecystectomy on 02/18/2021 Encoraged to continue incentive spirometry. Pt is being discharged home. Advised follow up with PCP and Surgery
== END 2021-02-19 14:05 | disposition home or self-care (01) ==
LOC: EC 09:24 → 5NMEDONC 12:34
PROVIDERS: ADMIT Surgery; ATTEND Surgery
DX: K80.00 Calculus of gallbladder with acute cholecystitis without obstruction (principal); K82.1 Hydrops of gallbladder; D62 Acute posthemorrhagic anemia; M19.90 Unspecified osteoarthritis, unspecified site; F41.9 Anxiety disorder, unspecified; F32.9 Major depressive disorder, single episode, unspecified; F64.9 Gender identity disorder, unspecified; E66.9 Obesity, unspecified; Z68.36 Body mass index [BMI] 36.0-36.9, adult; Z79.899 Other long term (current) drug therapy; Z88.1 Allergy status to other antibiotic agents; Z88.8 Allergy status to other drugs, medicaments and biological substances; Z88.4 Allergy status to anesthetic agent; Z90.79 Acquired absence of other genital organ(s); Z98.890 Other specified postprocedural states; Z82.49 Family history of ischemic heart disease and other diseases of the circulatory system; Z80.7 Family history of other malignant neoplasms of lymphoid, hematopoietic and related tissues
CPT/HCPCS: 96376 ×2; 96374; 96375; 99285; 36415; 88304; 80053; 80048; 82248; 83690; 85025 ×2; 76705; 47562; G0378 ×3; J2250; J2270; J1100; J2710; J2405 ×2; J1956 ×2; J3010; J1170 ×4; J1885; J2704; J1644

== ENCOUNTER 2021-08-12 11:47 | Emergency (ER) | payer BC, OTHER ==
[2021-08-12 12:25] VITALS: BP 116/69; PULSE 82; RESP 17; TEMP 99
[2021-08-12] MEDS ORDERED: LIDOCAINE 1% INJ 10MG/ML (20 ML MDV) SQ ONE (14:59)
--- NOTE | 2021-08-12 15:11 | ED ---
Wound/Laceration HPI - General Chief Complaint: Wound/Laceration Stated Complaint: thumb lac Time Seen by Provider: 08/12/21 14:53 Source: patient, RN notes reviewed Mode of arrival: ambulatory Limitations: no limitations - History of Present Illness Initial Comments: This a 41-year-old male presents emergency from chief complaint of left thumb laceration. Patient states that he was cutting apple states slipped. Patient states that he is a laceration into the nail. His tetanus is up-to-date. Patient states bleeding is controlled with pressure no other complaints. - Related Data Home Medications Medication Instructions Recorded Confirmed Ibuprofen [Advil] 200 - 400 mg PO Q8HR PRN 12/23/16 02/17/21 diphenhydrAMINE [Benadryl] 25 - 50 mg PO HS PRN 12/23/16 02/17/21 ALPRAZolam [Xanax] 0.5 mg PO DAILY PRN 02/17/21 02/17/21 Cetirizine HCl [Zyrtec] 10 mg PO DAILY PRN 02/17/21 02/17/21 Cholecalciferol [Vitamin D3 (25 25 mcg PO DAILY 02/17/21 02/17/21 Mcg = 1000 Iu)] Estradiol [Estrace] 2 mg PO BID 02/17/21 02/17/21 Multivitamins, Thera [Multivitamin 1 tab PO DAILY 02/17/21 02/17/21 (formulary)] busPIRone HCL [Buspar] 7.5 mg PO BID 02/17/21 02/17/21 Previous Rx's Medication Instructions Recorded Docusate [Colace] 100 mg PO BID #30 capsule 02/19/21 HYDROcodone/APAP 5-325MG [[place] 1 tab PO Q6HR PRN 3 Days #12 tab 02/19/21 5-325] Allergies Allergy/AdvReac Type Severity Reaction Status Date / Time cefaclor [From Ceclor] AdvReac Rash/Hives Verified 02/17/21 13:38 lidocaine AdvReac SYNCOPE Verified 02/17/21 13:38 loratadine [From Claritin] AdvReac Chest Pain Verified 02/17/21 13:38 Review of Systems ROS Statement: Those systems with pertinent positive or pertinent negative responses have been documented in the HPI. ROS Other: All systems not noted in ROS Statement are negative. Past Medical History Past Medical History: Osteoarthritis (OA) Additional Past Medical History / Comment(s): GENDER DYSPHORIA, DEPRESSION History of Any Multi-Drug Resistant Organisms: None Reported Past Surgical History: No Surgical Hx Reported Additional Past Surgical History / Comment(s): WISDOM TEETH REMOVED,SX ON BELEM GREAT TOES FOR INGROWN TOE NAILS,orchiectomy Past Anesthesia/Blood Transfusion Reactions: No Reported Reaction Additional Past Anesthesia/Blood Transfusion Reaction / Comment(s): MOTION SICKNESS CHILD Past Psychological History: Depression Smoking Status: Never smoker Past Alcohol Use History: None Reported Past Drug Use History: None Reported - Past Family History Mother Family Medical History: Myocardial Infarction ([place]) Father Family Medical History: Cancer Additional Family Medical History / Comment(s): LYMPHOMA General Exam Limitations: no limitations General appearance: alert, in no apparent distress Head exam: Present: atraumatic, normocephalic, normal inspection Eye exam: Present: normal appearance, PERRL, EOMI. Absent: scleral icterus, conjunctival injection, periorbital swelling Respiratory exam: Present: normal lung sounds bilaterally. Absent: respiratory distress, wheezes, rales, rhonchi, stridor Cardiovascular Exam: Present: regular rate, normal rhythm, normal heart sounds. Absent: systolic murmur, diastolic murmur, rubs, gallop, clicks Extremities exam: Present: other (Left thumb laceration extending into the nail approximately one centimeters) Course Vital Signs 08/12/21 12:22 Temperature 99.0 F Pulse Rate 82 Respiratory 17 Rate Blood Pressure 116/69 O2 Sat by Pulse 98 Oximetry Procedures - Laceration Laceration #1 Consent Obtained: verbal consent Indication: laceration Site: hand (Left hand first digit) Size (cm): 1 Description: irregular Depth: simple, single layer Anesthetic Used: lidocaine 1%, without epi Anesthesia Technique: local infiltration Amount (mls): 2 Pre-repair: wound explored, irrigated extensively, deep structures intact Type of Sutures: nylon Size of Sutures: 4-0 Number of Sutures: 2 Patient Tolerated Procedure: well, no complications Medical Decision Making - Medical Decision Making Laceration repaired wound care injection provided. Disposition Clinical Impression: Laceration of left thumb Disposition: HOME SELF-CARE Condition: Stable Instructions (If sedation given, give patient instructions): Care For Your Stitches (ED), Finger Laceration (ED) Additional Instructions: Have sutures removed in 7 days.Please return to the Emergency Department if symptoms worsen or any other concerns. Is patient prescribed a controlled substance at d/c from ED?: No Referrals: Steve Hager NPC [Primary Care Provider] - 1-2 days Time of Disposition: 15:11
== END 2021-08-12 15:41 | disposition home or self-care (01) ==
LOC: EC 11:47
DX: S61.012A Laceration without foreign body of left thumb without damage to nail, initial encounter (principal); F32.A Depression, unspecified; M19.90 Unspecified osteoarthritis, unspecified site; Z79.1 Long term (current) use of non-steroidal anti-inflammatories (NSAID); Z79.899 Other long term (current) drug therapy; W26.8XXA Contact with other sharp object(s), not elsewhere classified, initial encounter
CPT/HCPCS: 12001; 99282; J2001

== ENCOUNTER 2022-02-05 14:18 | Observation (INO) | payer OTHER ==
[2022-02-05 16:41] LABS: Basophils # (A) 0.1 k/uL (0-0.2); Basophils % (A) 1 %; Eosinophils # (A) 0.2 k/uL (0-0.7); Eosinophils % (A) 1 %; HGB 12.9 gm/dL (13.0-17.5); Lymphocytes # (A) 2.9 k/uL (1.0-4.8); Lymphocytes % (A) 19 %; MCH 30.8 pg (25.0-35.0); MCV 93.3 fL (80.0-100.0); Mean Platelet Volume 6.9; Monocytes # (A) 0.6 k/uL (0-1.0); Monocytes % (A) 4 %; Neutrophils # (A) 10.9 k/uL (1.3-7.7); Neutrophils % (A) 73 %; Platelet Count 337 k/uL (150-450); RBC 4.18 m/uL (4.30-5.90); RDW 12.3 % (11.5-15.5)
[2022-02-05 16:48] LABS: ALT 21 U/L (4-49); AST 24 U/L (17-59); African American GFR (CKD) >90 (>60 ml/min/1.73 sqM); Albumin 4.1 g/dL (3.5-5.0); Alkaline Phosphatase 74 U/L (38-126); Anion Gap 6 mmol/L; Blood Urea Nitrogen 11 mg/dL (9-20); Carbon Dioxide 26 mmol/L (22-30); Chloride 105 mmol/L (98-107); Glucose 91 mg/dL (74-99); Magnesium 2.2 mg/dL (1.6-2.3); Non-African American GFR(CKD) 90 (>60 ml/min/1.73 sqM); Potassium 3.8 mmol/L (3.5-5.1); Sodium 137 mmol/L (137-145); Total Bilirubin 0.3 mg/dL (0.2-1.3); Total Protein 6.7 g/dL (6.3-8.2)
[2022-02-05 16:49] LABS: INR 0.9 (<1.2); Partial Thromboplastin Time 25.6 sec (22.0-30.0); Prothrombin Time 10.1 sec (9.0-12.0)
--- NOTE | 2022-02-05 17:12 | XR ---
EXAMINATION TYPE: XR chest 2V DATE OF EXAM: 02/05/2022 4:18 PM COMPARISON: Chest radiographs from 12/26/2016. TECHNIQUE: XR chest 2V Frontal and lateral views of the chest. CLINICAL INDICATION:Male, 42 years old with history of Chest Pain; FINDINGS: Lungs/Pleura: There is no evidence of pleural effusion, focal consolidation, or pneumothorax. Pulmonary vascularity: Unremarkable. Heart/mediastinum: Cardiomediastinal silhouette is unremarkable. Musculoskeletal: No acute osseous pathology. IMPRESSION: No acute cardiopulmonary disease/process.
--- NOTE | 2022-02-05 19:22 | ED ---
Chest Pain HPI - General Chief Complaint: Chest Pain Stated Complaint: Chest palp/pain Time Seen by Provider: 02/05/22 18:04 Source: patient, RN notes reviewed Mode of arrival: ambulatory Limitations: no limitations - History of Present Illness Initial Comments: 43-year-old male history of gallbladder disease in the past who presents today with complaints of 2 weeks of intermittent episodes of palpitations with some runs lasting 45-60 minutes. Today he was working [employer] nothing exertionally states however he was started developing 5-6/10 severity retrosternal chest pain heart rate got up in the 120s. He does have a history of some similar presentation approximately 5 years ago with a negative workup excluding a cardiac cath which at that time was not performed. No fevers chills nausea vomiting sweats. MD Complaint: chest pain, other - Related Data Home Medications Medication Instructions Recorded Confirmed Ibuprofen [Advil] 200 - 400 mg PO Q8HR PRN 12/23/16 02/17/21 diphenhydrAMINE [Benadryl] 25 - 50 mg PO HS PRN 12/23/16 02/17/21 ALPRAZolam [Xanax] 0.5 mg PO DAILY PRN 02/17/21 02/17/21 Cetirizine HCl [Zyrtec] 10 mg PO DAILY PRN 02/17/21 02/17/21 Cholecalciferol [Vitamin D3 (25 25 mcg PO DAILY 02/17/21 02/17/21 Mcg = 1000 Iu)] Multivitamins, Thera [Multivitamin 1 tab PO DAILY 02/17/21 02/17/21 (formulary)] busPIRone HCL [Buspar] 7.5 mg PO BID 02/17/21 02/17/21 estradioL [Estrace] 2 mg PO BID 02/17/21 02/17/21 Previous Rx's Medication Instructions Recorded Docusate [Colace] 100 mg PO BID #30 capsule 02/19/21 HYDROcodone/APAP 5-325MG [[place] 1 tab PO Q6HR PRN 3 Days #12 tab 02/19/21 5-325] Allergies Allergy/AdvReac Type Severity Reaction Status Date / Time cefaclor [From Ceclor] AdvReac Rash/Hives Verified 02/05/22 15:36 lidocaine AdvReac SYNCOPE Verified 02/05/22 15:36 loratadine [From Claritin] AdvReac Chest Pain Verified 02/05/22 15:36 Review of Systems ROS Statement: Those systems with pertinent positive or pertinent negative responses have been documented in the HPI. ROS Other: All systems not noted in ROS Statement are negative. Past Medical History Past Medical History: Osteoarthritis (OA) Additional Past Medical History / Comment(s): GENDER DYSPHORIA, DEPRESSION History of Any Multi-Drug Resistant Organisms: None Reported Past Surgical History: No Surgical Hx Reported Additional Past Surgical History / Comment(s): WISDOM TEETH REMOVED,SX ON BELEM GREAT TOES FOR INGROWN TOE NAILS,orchiectomy Past Anesthesia/Blood Transfusion Reactions: No Reported Reaction Additional Past Anesthesia/Blood Transfusion Reaction / Comment(s): MOTION SICKNESS CHILD Past Psychological History: Depression Smoking Status: Never smoker Past Alcohol Use History: None Reported Past Drug Use History: None Reported - Past Family History Mother Family Medical History: Myocardial Infarction ([place]) Father Family Medical History: Cancer Additional Family Medical History / Comment(s): LYMPHOMA General Exam - General Exam Comments Initial Comments: This is a well-developed well-nourished awake alert oriented 3 biological male Limitations: no limitations General appearance: alert, in no apparent distress Head exam: Present: atraumatic, normocephalic, normal inspection Eye exam: Present: normal appearance, PERRL, EOMI. Absent: scleral icterus, conjunctival injection, periorbital swelling ENT exam: Present: normal exam, mucous membranes moist Neck exam: Present: normal inspection. Absent: tenderness, meningismus, lymphadenopathy Respiratory exam: Present: normal lung sounds bilaterally. Absent: respiratory distress, wheezes, rales, rhonchi, stridor Cardiovascular Exam: Present: regular rate, normal rhythm, normal heart sounds. Absent: systolic murmur, diastolic murmur, rubs, gallop, clicks GI/Abdominal exam: Present: soft, normal bowel sounds. Absent: distended, tenderness, guarding, rebound, rigid Extremities exam: Present: normal inspection, full ROM, normal capillary refill. Absent: tenderness, pedal edema, joint swelling, calf tenderness Back exam: Present: normal inspection Neurological exam: Present: alert, oriented X3, CN II-XII intact Psychiatric exam: Present: normal affect, normal mood Skin exam: Present: warm, dry, intact, normal color. Absent: rash Course Vital Signs 02/05/22 15:34 Temperature 97.7 F Pulse Rate 82 Respiratory 18 Rate Blood Pressure 113/71 O2 Sat by Pulse 98 Oximetry - Reevaluation(s) Reevaluation #1: 02/05/22 19:22 I did observe a rhythm strip the patient did bring it with him which show PACs. Chest Pain MDM - MDM Imaging reviewed as well as report no acute findings. I did compare the EKG from today with previous ones were no definitive acute changes however the patient's symptoms had change from previous evaluations exertional dyspnea and chest discomfort. Patient will be admitted I did discuss the case with Dr. Mascorro. Disposition Clinical Impression: Unstable angina, Atypical chest pain Disposition: ADMITTED IP TO THIS HOSP Condition: Stable Referrals: Nonstaff,Physician [Primary Care Provider] - 1-2 days
[2022-02-05] MEDS ORDERED: NITROGLYCERIN SL TABS 0.4 MG TAB SUBLINGUAL PRN (20:01)
[2022-02-05] MEDS ORDERED: HEPARIN SODIUM 1,000 UN/ML (10ML VL) IV ONE (20:01)
[2022-02-05] MEDS ORDERED: NON FORMULARY DRUG (Cetirizine Hcl [Zyrtec] 10 MG Tablet) PO PRN (20:03)
[2022-02-05] MEDS ORDERED: ALPRAZolam 0.5 MG TAB PO PRN (20:03)
[2022-02-05] MEDS ORDERED: SODIUM CHLORIDE 0.9% 1,000 ML IV SCH (20:15)
[2022-02-05] MEDS ORDERED: HEPARIN SOD,PORK IN 0.45% NACL 25,000 UNIT in 0.45% NACL 1 250ML.BAG IV SCH (20:15)
[2022-02-05] MEDS: busPIRone HCl 5 MG TAB PO SCH (21:14)
--- NOTE | 2022-02-06 00:02 | P.HPIM ---
History of Present Illness H&P Date: 02/05/22 The patient is a 42-year non-binary individual (pronouns: they/them) who presents to the emergency room with complaints of palpitations, chest pain, and shortness of breath. The patient reports that he has been having intermittent palpitations over the past 2 weeks, usually lasting under an hour and resolving spontaneously. He reports however that this morning at 10 AM as he was working in his yard that he suddenly developed severe palpitations, which were accompanied by 6 out of 10 substernal aching-like discomfort, nonradiating, with associated shortness of breath. The pain persisted throughout the day, which prompted him to come to the emergency room. He reports that his pain gradually improved throughout the day, and was currently at a 2 out of 10. Do not explain sitting nausea, diaphoresis, fever, chills, cough. EKG the emergency room revealed sinus rhythm at [address] depression noted in the inferior leads 2, 3, aVF. Chest x-ray was unremarkable. Laboratory evaluation was unremarkable with WBC count of 15.0, and troponin less than 0.012. The patient denied tobacco or illicit substance use. Review of systems: Pertinent positives and negatives as discussed in HPI, a complete review of systems was performed and all other systems are negative. Physical examination: General: non toxic, no distress, appears at stated age, obese Derm: no unusual rashes/lesions, warm Head: atraumatic, normocephalic, symmetric Eyes: EOMI, no lid lag, anicteric sclera, pupils equal round reactive to light ENT: Nose and ears atraumatic Neck: No cervical lymphadenopathy, trachea midline, supple Mouth: no lip lesion, mucus membranes moist Cardiovascular: S1S2 reg, no murmur, positive dorsalis pedis pulse bilateral, no edema Lungs: CTA bilateral, no rhonchi, no rales, no accessory muscle use Abdominal: soft, nontender to palpation, no guarding Ext: muscle strength 5 out of 5 in all 4 extremities grossly, no gross muscle atrophy, no contractures, Neuro: CN II-XI grossly intact, no gross focal neuro deficits Psych: Alert, oriented, appropriate affect Assessment/plan Unstable angina -Continue with heparin infusion -Cardiac monitoring -Cardiology consult -Trend troponin -Echocardiogram -Continue aspirin, statin Leukocytosis -Likely due to acute stressor -No signs of active infection at this time -Monitor for now DVT prophylaxis -Heparin infusion The patient is admitted with an anticipated less than 2 midnight stay for evaluation of unstable angina. CODE STATUS: Full Code Discussed with: Patient Anticipated discharge date: In a.m. Anticipated discharge place: Home Past Medical History Past Medical History: Osteoarthritis (OA) Additional Past Medical History / Comment(s): GENDER DYSPHORIA, DEPRESSION History of Any Multi-Drug Resistant Organisms: None Reported Past Surgical History: No Surgical Hx Reported Additional Past Surgical History / Comment(s): WISDOM TEETH REMOVED,SX ON BELEM GREAT TOES FOR INGROWN TOE NAILS,orchiectomy Past Anesthesia/Blood Transfusion Reactions: No Reported Reaction Additional Past Anesthesia/Blood Transfusion Reaction / Comment(s): MOTION SICKNESS CHILD Past Psychological History: Depression Additional Psychological History / Comment(s): PT STATED THAT HE FEELS WELL MAINTAINED ON HIS CURRENT MEDS.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 Smoking Status: Never smoker Past Alcohol Use History: None Reported Past Drug Use History: None Reported - Past Family History Mother Family Medical History: Myocardial Infarction ([place]) Father Family Medical History: Cancer Additional Family Medical History / Comment(s): LYMPHOMA Medications and Allergies Home Medications Medication Instructions Recorded Confirmed Type Ibuprofen [Advil] 400 mg PO Q8HR PRN 12/23/16 02/05/22 History diphenhydrAMINE [Benadryl] 25 - 50 mg PO HS PRN 12/23/16 02/05/22 History ALPRAZolam [Xanax] 0.5 mg PO DAILY PRN 02/17/21 02/05/22 History Cetirizine HCl [Zyrtec] 10 mg PO DAILY PRN 02/17/21 02/05/22 History Multivitamins, Thera [Multivitamin 1 tab PO DAILY 02/17/21 02/05/22 History (formulary)] estradioL [Estrace] 2 mg PO HS 02/17/21 02/05/22 History Cholecalciferol [Vitamin D3 (25 50 mcg PO DAILY 02/05/22 02/05/22 History Mcg = 1000 Iu)] Pseudoephedrine [Sudafed] 30 mg PO Q4H PRN 02/05/22 02/05/22 History Venlafaxine HCl ER [Effexor Xr] 75 mg PO DAILY 02/05/22 02/05/22 History estradioL [Estrace] 4 mg PO DAILY 02/05/22 02/05/22 History Allergies Allergy/AdvReac Type Severity Reaction Status Date / Time cefaclor [From Ceclor] AdvReac Rash/Hives Verified 02/05/22 22:08 lidocaine AdvReac SYNCOPE Verified 02/05/22 22:08 loratadine [From Claritin] AdvReac Chest Pain Verified 02/05/22 22:08 Physical Exam Vitals: Vital Signs Temp Pulse Pulse Resp BP BP Pulse Ox 02/05/22 22:06 97.7 F 76 17 116/73 97 02/05/22 21:22 77 18 117/81 97 02/05/22 15:34 97.7 F 82 18 113/71 98 Intake and Output 02/05/22 02/05/22 02/06/22 14:59 22:59 06:59 Other: Weight 119.295 kg Results CBC & Chem 7: 02/05/22 16:29 02/05/22 16:29 Labs: Abnormal Lab Results - Last 24 Hours (Table) 02/05/22 Range/Units 16:29 WBC 15.0 H (3.8-10.6) k/uL RBC 4.18 L (4.30-5.90) m/uL Hgb 12.9 L (13.0-17.5) gm/dL Neutrophils # 10.9 H (1.3-7.7) k/uL Thrombosis Risk Factor Assmnt - Choose All That Apply Each Factor Represents 1 point: Age 41-60 years, Obesity (BMI >25) Thrombosis Risk Factor Assessment Total Risk Factor Score: 2 Thrombosis Risk Factor Assessment Level: Low Risk
[2022-02-06] MEDS ORDERED: ATORVASTATIN 80 MG TAB PO SCH (00:15)
[2022-02-06] MEDS ORDERED: HEPARIN SODIUM 1,000 UN/ML (10ML VL) IV PRN (06:01)
[2022-02-06 07:58] VITALS: BP 112/69; PULSE 69; RESP 18; TEMP 98.1
[2022-02-06] MEDS ORDERED: CHOLECALCIFEROL 25 MCG (1000 IU) TABLET PO SCH (09:00)
[2022-02-06] MEDS ORDERED: ASPIRIN 325 MG TAB PO SCH (09:00)
[2022-02-06] MEDS ORDERED: MULTIVITAMINS, THERA 1 EACH TAB PO SCH (09:00)
[2022-02-06] MEDS ORDERED: VENLAFAXINE HCL ER 75 MG CAP PO SCH (09:00)
[2022-02-06] MEDS ORDERED: ASPIRIN 81 MG PO SCH (09:00)
[2022-02-06] MEDS: busPIRone HCl 5 MG TAB PO SCH (09:08)
[2022-02-06 09:18] LABS: LDL Cholesterol,Calculated 70.5 mg/dL (0.0-131.0)
--- NOTE | 2022-02-06 09:41 | P.CRDCN ---
History of Present Illness History of present illness: HISTORY OF PRESENTING ILLNESS This is a pleasant 42 year old male with no significant past medical history. 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 He does not f ollow with a fire pilot, he did see Dr. Wick in 2017/2018 for atypical chest pain, underwent echocardiogram, stress test and 24hour holter monitor with no acute findings. We have been asked to see in consultation for chest pain and palpitations. Patient states that he's been having on and off palpitations that started about 2 weeks ago. He states that his palpitations have increased over the past week. Yesterday specifically he was working around the yard he had increased palpitations, chest tightness, some shortness of breath, he sat down in his symptoms improved. Due to his chest tightness and shortness of breath he decided to present to the emergency department for further evaluation. 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 He brought in those EKG strips and reviewed today by Dr. Mathews. Patient's symptoms have resolved. His chest discomfort was non-radiating, non-exertional. No specific alleviating or aggravating factors. They were precipitated by the palpitations. He denies any history of CAD, TN, stroke, diabetes, hypertension. He denies any history of an arrhythmia. Denies tobacco use, illicit drug use or alcohol. DIAGNOSTICS. EKG reveals sinus rhythm, heart rate 88 Nonspecific STT wave abnormalities. No acute ischemia. Prior EKG in 2017 with similar findings. Telemetry tracings indicate sinus mechanism with heart rate in the 60s, no acute arrhythmia noted. Chest xray no acute cardiopulmonary process Echocardiogram and 2017 revealed an EF of 55-60%, mild mitral regurgitation, mild tricuspid regurgitation Exercise stress test in 2017 negative for ischemia Laboratory reviewed, WBC 15, hemoglobin 12, platelets 337, troponin negative 3, sodium 137, potassium 3.8, BUN 11, serum creatinine 1.03, magnesium 2.2, triglycerides 123, cholesterol 148, LDL 70, HDL 52 Current home cardiac medications include none REVIEW OF SYSTEMS At the time of my exam: CONSTITUTIONAL: Denies fever or chills. CARDIOVASCULAR: Denies chest pain, shortness of breath, orthopnea, PND +palpitations. RESPIRATORY: Denies cough. GASTROINTESTINAL: Denies abdominal pain, diarrhea, constipation, nausea or vomiting. MUSCULOSKELETAL: Denies myalgias. NEUROLOGIC: Denies numbness, tingling, headacbe or weakness. ENDOCRINE: Denies fatigue, weight change, polydipsia or polyurina. GENITOURINARY: Denies burning, hematuria or urgency with micturation. HEMATOLOGIC: Denies history of anemia or bleeding. PHYSICAL EXAMINATION Blood pressure 112/69, heart 69, afebrile, saturation 90% on room air CONSTITUTIONAL: No apparent distress. HEENT: Head is normocephalic. Pupils are equal, round. Sclerae anicteric. Mucous membranes of the mouth are moist. No JVD. No carotid bruit. CHEST EXAMINATION: Lungs are clear to auscultation. No chest wall tenderness is noted on palpation or with deep breathing. HEART EXAMINATION: Regular rate and rhythm. S1, S2 heard. No murmurs, gallops or rub. ABDOMEN: Soft, nontender. Positive bowel sounds. EXTREMITIES: 2+ peripheral pulses, no lower extremity edema and no calf tenderness. NEUROLOGIC EXAMINATION: Patient is awake, alert and oriented x3. ASSESSMENT Palpitations Premature atrial complexes Chest pain, atypical, acute coronary syndrome has been ruled out PLAN An acute coronary event has been ruled out with no EKG evidence of ischemia and negative cardiac enzymes. We will review 2D echocardiogram Do not recommend adding beta juan at this time for PACs. Patient is stable from a cardiology perspective to be discharged home, follow up outpatient with Dr. Wick in 1-3 weeks. Nurse practitioner note has been reviewed by physician. Signing provider agrees with the documented findings, assessment, and plan of care. Past Medical History Past Medical History: Osteoarthritis (OA) Additional Past Medical History / Comment(s): GENDER DYSPHORIA, DEPRESSION History of Any Multi-Drug Resistant Organisms: None Reported Past Surgical History: No Surgical Hx Reported Additional Past Surgical History / Comment(s): WISDOM TEETH REMOVED,SX ON BELEM GREAT TOES FOR INGROWN TOE NAILS,orchiectomy Past Anesthesia/Blood Transfusion Reactions: No Reported Reaction Additional Past Anesthesia/Blood Transfusion Reaction / Comment(s): MOTION SICKNESS CHILD Past Psychological History: Depression Additional Psychological History / Comment(s): PT STATED THAT HE FEELS WELL MAINTAINED ON HIS CURRENT MEDS.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 Smoking Status: Never smoker Past Alcohol Use History: None Reported Past Drug Use History: None Reported - Past Family History Mother Family Medical History: Myocardial Infarction (TN) Father Family Medical History: Cancer Additional Family Medical History / Comment(s): LYMPHOMA Medications and Allergies Home Medications Medication Instructions Recorded Confirmed Type Ibuprofen [Advil] 400 mg PO Q8HR PRN 12/23/16 02/05/22 History diphenhydrAMINE [Benadryl] 25 - 50 mg PO HS PRN 12/23/16 02/05/22 History ALPRAZolam [Xanax] 0.5 mg PO DAILY PRN 02/17/21 02/05/22 History Cetirizine HCl [Zyrtec] 10 mg PO DAILY PRN 02/17/21 02/05/22 History Multivitamins, Thera [Multivitamin 1 tab PO DAILY 02/17/21 02/05/22 History (formulary)] estradioL [Estrace] 2 mg PO HS 02/17/21 02/05/22 History Cholecalciferol [Vitamin D3 (25 50 mcg PO DAILY 02/05/22 02/05/22 History Mcg = 1000 Iu)] Pseudoephedrine [Sudafed] 30 mg PO Q4H PRN 02/05/22 02/05/22 History Venlafaxine HCl ER [Effexor Xr] 75 mg PO DAILY 02/05/22 02/05/22 History estradioL [Estrace] 4 mg PO DAILY 02/05/22 02/05/22 History Allergies Allergy/AdvReac Type Severity Reaction Status Date / Time cefaclor [From Ceclor] AdvReac Rash/Hives Verified 02/05/22 22:08 lidocaine AdvReac SYNCOPE Verified 02/05/22 22:08 loratadine [From Claritin] AdvReac Chest Pain Verified 02/05/22 22:08 Physical Exam Vitals: Vital Signs Temp Pulse Pulse Resp BP BP Pulse Ox 02/06/22 07:00 98.1 F 69 18 112/69 99 02/06/22 01:41 97.8 F 70 16 116/70 97 02/05/22 22:06 97.7 F 76 17 116/73 97 02/05/22 21:22 77 18 117/81 97 02/05/22 15:34 97.7 F 82 18 113/71 98 Intake and Output 02/05/22 02/06/22 02/06/22 22:59 06:59 14:59 Intake Total 86.181 Balance 86.181 Intake: Intake, IV Titration 86.181 Amount Heparin Sod,Pork in 0.45% 86.181 NaCl 25,000 unit In 0.45 % NaCl 1 250ml.bag @ 8.4 UNITS/KG/HR 10.021 mls/hr IV .Q24H [facility] Rx#: [id number] Other: Weight 119.295 kg Results 02/05/22 16:29 02/05/22 16:29 Cardiac Enzymes 02/05/22 02/05/22 02/05/22 Range/Units 00:00 16:29 16:29 AST 24 (17-59) U/L Troponin I <0.012 <0.012 (0.000-0.034) ng/mL 02/05/22 Range/Units 20:38 AST (17-59) U/L Troponin I <0.012 (0.000-0.034) ng/mL Coagulation 02/05/22 02/06/22 Range/Units 16:29 04:46 PT 10.1 (9.0-12.0) sec APTT 25.6 32.0 H (22.0-30.0) sec CBC 02/05/22 Range/Units 16:29 WBC 15.0 H (3.8-10.6) k/uL RBC 4.18 L (4.30-5.90) m/uL Hgb 12.9 L (13.0-17.5) gm/dL Hct 39.0 (39.0-53.0) % Plt Count 337 (150-450) k/uL Comprehensive Metabolic Panel 02/05/22 Range/Units 16:29 Sodium 137 (137-145) mmol/L Potassium 3.8 (3.5-5.1) mmol/L Chloride 105 (98-107) mmol/L Carbon Dioxide 26 (22-30) mmol/L BUN 11 (9-20) mg/dL Creatinine 1.03 (0.66-1.25) mg/dL Glucose 91 (74-99) mg/dL Calcium 9.0 (8.4-10.2) mg/dL AST 24 (17-59) U/L ALT 21 (4-49) U/L Alkaline Phosphatase 74 (38-126) U/L Total Protein 6.7 (6.3-8.2) g/dL Albumin 4.1 (3.5-5.0) g/dL Current Medications Generic Name Dose Route Start Last Admin Trade Name Freq PRN Reason Stop Dose Admin Alprazolam 0.5 mg 02/05/22 20:03 Alprazolam 0.5 Mg Tab PO DAILY PRN Anxiety Aspirin 325 mg 02/06/22 09:00 Aspirin 325 Mg Tab PO DAILY [facility] Atorvastatin Calcium 80 mg 02/06/22 00:15 02/06/22 00:27 Atorvastatin 80 Mg Tab PO Not Given HS [facility]O Buspirone HCl 7.5 mg 02/05/22 21:00 02/05/22 21:14 Buspirone Hcl 5 Mg Tab PO Not Given BID [facility]O Cholecalciferol 25 mcg 02/06/22 09:00 Cholecalciferol 25 Mcg (1000 Iu) Tablet PO DAILY [facility] Estradiol 2 mg 02/05/22 23:45 02/06/22 00:28 Estradiol 0.5 Mg Tab PO 2 mg HS [facility] Administration Heparin Sodium (Porcine) 0 unit 02/06/22 06:01 02/06/22 06:21 Heparin Sodium 1,000 Un/Ml (10ml Vl) IV 4,000 unit PER PROTOCOL PRN Administration Low PTT Protocol Sodium Chloride 1,000 mls @ 20 mls/hr 02/05/22 20:15 02/05/22 21:14 Saline 0.9% IV 20 mls/hr .Q24H [facility] Administration Heparin Sodium/Sodium Chloride 250 mls @ 10.021 mls/hr 02/05/22 20:15 02/06/22 05:57 25,000 unit/ Sodium Chloride IV 11.4 units/kg/hr .Q24H [facility] 13.6 mls/hr Titration Protocol 8.4 UNITS/KG/HR Multivitamins 1 each 02/06/22 09:00 Multivitamins, Thera 1 Each Tab PO DAILY [facility] Nitroglycerin 0.4 mg 02/05/22 20:01 Nitroglycerin Sl Tabs 0.4 Mg Tab SUBLINGUAL Q5M PRN Chest Pain Non-Formulary Medication 10 mg 02/05/22 20:03 Cetirizine Hcl [Zyrtec] PO DAILY PRN Allergy Symptoms Venlafaxine HCl 75 mg 02/06/22 09:00 Venlafaxine Hcl Er 75 Mg Cap PO DAILY [facility] Intake and Output 02/05/22 02/06/22 02/06/22 22:59 06:59 14:59 Intake Total 86.181 Balance 86.181 Intake: Intake, IV Titration 86.181 Amount Heparin Sod,Pork in 0.45% 86.181 NaCl 25,000 unit In 0.45 % NaCl 1 250ml.bag @ 8.4 UNITS/KG/HR 10.021 mls/hr IV .Q24H [facility] Rx#: [id number] Other: Weight 119.295 kg 02/05/22 16:29 02/05/22 16:29
--- NOTE | 2022-02-06 10:23 | P.PN ---
Subjective Progress Note Date: 02/06/22 Discharge Diagnosis: Chest pain and palpitations, acute coronary event has been ruled out. Leukocytosis, believed to be reactive secondary to stress no signs of infection. Hospital Course: Patient is a very pleasant 42-year-old with no significant reported past medical history. 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 Patient reports he has been experiencing intermittent palpitations off and on for the past 2 weeks, however, while working in the yard he noticed these palpitations increased and were accompanied by chest tightness and shortness of breath. Patient reports these symptoms resolved at rest. Patient presented to the ER for evaluation on 02/05/22. He underwent full evaluation. EKG was completed revealing normal sinus rhythm at 88 bpm with mild inferior lead ST depression in leads II, III, and aVF. Chest x-ray was negative for acute cardiopulmonary process. Lipid profile was unremarkable. CBC did reveal mild leukocytosis with WBC count of 15.0 otherwise unremarkable. Coags normal findings. CMP unremarkable. Troponin less than 0.012. Patient was admitted under our services with consultation to cardiology. Troponins were trended overnight all negative at less than 0.0123 draws. Lipid profile unremarkable. Echocardiogram was completed. Patient evaluated by cardiology stating patient is stable from cardiac perspective and recommending outpatient follow-up with Dr. Wick in 1-3 weeks. Patient is medically stable for discharge at this time. Vital signs are unremarkable with blood pressure 112/69, heart rate 69, respiratory rate 18, temp 98.1F, and SpO2 of 99% on room air. Physical examination: Patient seen and examined at bedside. Vital signs reviewed and stable. General: Nontoxic, no distress and appears stated age. Derm: Skin warm and dry, normal coloration for ethnicity. Head: Atraumatic, normocephalic and symmetric. Eyes: EOMs intact, no lid lag, and anicteric sclera Mouth: no lip lesions, mucus membranes moist Cardiovascular: regular rate and rhythm with normal S1S2, no murmur, positive posterior tibial pulses bilaterally, and cap refill < 2 seconds. Lungs: Respirations even, regular, and unlabored on room air. Lungs CTA bilaterally, no rhonchi, no rales, no wheezing, and no accessory muscle usage. Abdominal: soft, nontender to palpation, no guarding, no appreciable organomegaly Ext: ROM intact. No gross muscle atrophy, no edema, no contractures Neuro: Speech clear, face symmetrical and CN II-XII grossly intact with no noted focal neuro deficits Psych: Alert and oriented to person, place, time, and situation. Appropriate and pleasant affect. A total of 35 minutes of time were spent preparing this complex discharge summary. Pt was discharged on 02/06/22 at 10 AM. Objective - Vital Signs Vital signs: Vital Signs Temp 98.1 F 02/06/22 07:00 Pulse 69 02/06/22 07:00 Resp 18 02/06/22 07:00 BP 112/69 02/06/22 07:00 Pulse Ox 99 02/06/22 07:00 FiO2 Intake & Output 02/05/22 02/06/22 02/06/22 18:59 06:59 18:59 Intake Total 86.181 Balance 86.181 Weight 119.295 kg 119.295 kg Intake: Intake, IV Titration 86.181 Amount Heparin Sod,Pork in 0.45% 86.181 NaCl 25,000 unit In 0.45 % NaCl 1 250ml.bag @ 8.4 UNITS/KG/HR 10.021 mls/hr IV .Q24H [facility] Rx#: [id number] - Labs CBC & Chem 7: 02/05/22 16:29 02/05/22 16:29 Labs: Abnormal Lab Results - Last 24 Hours (Table) 02/05/22 02/06/22 Range/Units 16:29 04:46 WBC 15.0 H (3.8-10.6) k/uL RBC 4.18 L (4.30-5.90) m/uL Hgb 12.9 L (13.0-17.5) gm/dL Neutrophils # 10.9 H (1.3-7.7) k/uL APTT 32.0 H (22.0-30.0) sec
--- NOTE | 2022-02-06 10:26 | CA ---
Transthoracic Echo Report Name: Guzman Lord Age: 42 Gender: M : 1980 Exam Date: 02/06/2022 08:03 Exam Location: [place] [facility] Ht (in): 72 Wt (lb): 263 Ordering Physician: Catherine Macsorro MD Attending/Referring Phys: Enzo Wick MD ([id number]) Associate Director Finance Shavonne Ritchie RDCS Procedure CPT: Indications: unstable angina Cardiac Hx: Technical Quality: Good Contrast 1: Total Dose (mL): Contrast 2: Total Dose (mL): MEASUREMENTS (Male / Female) Normal Values 2D ECHO LV Diastolic Diameter PLAX 4.8 cm 4.2 - 5.9 / 3.9 - 5.3 cm LV Systolic Diameter PLAX 3.0 cm IVS Diastolic Thickness 1.2 cm 0.6 - 1.0 / 0.6 - 0.9 cm LVPW Diastolic Thickness 1.2 cm 0.6 - 1.0 / 0.6 - 0.9 cm LV Relative Wall Thickness 0.5 RV Internal Dim ED PLAX 3.0 cm LA Systolic Diameter LX 3.7 cm 3.0 - 4.0 / 2.7 - 3.8 cm LA Volume 55.1 cm??? 18 - 58 / 22 - 52 cm??? M-MODE Aortic Root Diameter MM 3.1 cm MV E Point Septal Separation 0.7 cm AV Cusp Separation MM 2.3 cm DOPPLER AV Peak Velocity 140.5 cm/s AV Peak Gradient 7.9 mmHg MV Area PHT 4.6 cm??? Mitral E Point Velocity 107.7 cm/s Mitral A Point Velocity 71.5 cm/s Mitral E to A Ratio 1.5 MV Deceleration Time 166.2 ms MV E' Velocity 12.3 cm/s Mitral E to MV E' Ratio 8.8 TR Peak Velocity 221.6 cm/s TR Peak Gradient 19.6 mmHg Right Ventricular Systolic Press 24.5 mmHg FINDINGS Left Ventricle Left ventricular ejection fraction is estimated at 60-65 %. Left ventricular cavity size normal. Borderline left ventricular hypertrophy. Right Ventricle Normal right ventricular size and function. Right ventricular systolic pressure within normal limits. Right Atrium Normal right atrial size. Left Atrium Normal left atrial size. No evidence for an atrial septal defect. Mitral Valve Structurally normal mitral valve. No mitral stenosis, regurgitation or prolapse. Aortic Valve Trileaflet aortic valve. No aortic valve stenosis or regurgitation. Tricuspid Valve Mild tricuspid regurgitation. Pulmonic Valve Structurally normal pulmonic valve. Pericardium No pericardial effusion. Aorta Normal size aortic root and proximal ascending aorta. CONCLUSIONS Normal LV size and systolic function Previewed by: Dr. Ron Mathews MD (Electronically Signed) Final Date: 06 February 2022 10:25
[2022-02-06 10:53] LABS: HGB 12.9 gm/dL (13.0-17.5); MCH 31.8 pg (25.0-35.0); MCV 93.6 fL (80.0-100.0); Mean Platelet Volume 7.6; Platelet Count 305 k/uL (150-450); RBC 4.06 m/uL (4.30-5.90); RDW 12.7 % (11.5-15.5); WBC 8.6 k/uL (3.8-10.6)
[2022-02-06 11:28] LABS: ALT 18 U/L (4-49); AST 19 U/L (17-59); African American GFR (CKD) >90 (>60 ml/min/1.73 sqM); Albumin 3.5 g/dL (3.5-5.0); Albumin/Globulin Ratio 1.5; Alkaline Phosphatase 59 U/L (38-126); Anion Gap 5 mmol/L; Blood Urea Nitrogen 8 mg/dL (9-20); Calcium 8.3 mg/dL (8.4-10.2); Carbon Dioxide 26 mmol/L (22-30); Chloride 106 mmol/L (98-107); Globulin 2.4 g/dL; Glucose 110 mg/dL (74-99); Magnesium 2.1 mg/dL (1.6-2.3); Non-African American GFR(CKD) >90 (>60 ml/min/1.73 sqM); Potassium 3.9 mmol/L (3.5-5.1); Sodium 137 mmol/L (137-145); Total Bilirubin 0.2 mg/dL (0.2-1.3); Total Protein 5.9 g/dL (6.3-8.2)
--- NOTE | 2022-02-06 13:43 | P.DS ---
Providers Date of admission: 02/05/22 20:01 Expected date of discharge: 02/06/22 Attending physician: Catherine Mascorro MD Consults: 02/05/22 20:01 Consult Physician Urgent Consulting Provider: Charanjit Colón Consult Reason/Comments: Chest pain, palpitations Do you want consulting provider notified?: Yes Primary care physician: Physician Nonstaff Hospital Course: Discharge Diagnosis: Chest pain and palpitations, acute coronary event has been ruled out. Leukocytosis, believed to be reactive secondary to stress no signs of infection, resolved Hospital Course: Patient is a very pleasant 42-year-old with no significant reported past medical history. 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 Patient reports he has been experiencing intermittent palpitations off and on for the past 2 weeks, however, while working in the yard he noticed these palpitations increased and were accompanied by chest tightness and shortness of breath. Patient reports these symptoms resolved at rest. Patient presented to the ER for evaluation on 02/05/22. He underwent full evaluation. EKG was completed revealing normal sinus rhythm at 88 bpm with mild inferior lead ST depression in leads II, III, and aVF. Chest x-ray was negative for acute cardiopulmonary process. Lipid profile was unremarkable. CBC did reveal mild leukocytosis with WBC count of 15.0 otherwise unremarkable. Coags normal findings. CMP unremarkable. Troponin less than 0.012. Patient was admitted under our services with consultation to cardiology. Troponins were trended overnight all negative at less than 0.0123 draws. Lipid profile unremarkable. Echocardiogram was completed. Patient evaluated by cardiology stating patient is stable from cardiac perspective and recommending outpatient follow-up with Dr. Wick in 1-3 weeks. Patient is medically stable for discharge at this time. Leukocytosis resolved with repeat labs revealing WBC count of 8.6. TSH also normal findings is 0.740. Vital signs are unremarkable with blood pressure 112/69, heart rate 69, respiratory rate 18, temp 98.1F, and SpO2 of 99% on room air. Patient discharged home and to follow-up outpatient with PCP and cardiology. No new medications added during this admission. Physical examination: Patient seen and examined at bedside. Vital signs reviewed and stable. General: Nontoxic, no distress and appears stated age. Derm: Skin warm and dry, normal coloration for ethnicity. Head: Atraumatic, normocephalic and symmetric. Eyes: EOMs intact, no lid lag, and anicteric sclera Mouth: no lip lesions, mucus membranes moist Cardiovascular: regular rate and rhythm with normal S1S2, no murmur, positive posterior tibial pulses bilaterally, and cap refill < 2 seconds. Lungs: Respirations even, regular, and unlabored on room air. Lungs CTA bilaterally, no rhonchi, no rales, no wheezing, and no accessory muscle usage. Abdominal: soft, nontender to palpation, no guarding, no appreciable organomegaly Ext: ROM intact. No gross muscle atrophy, no edema, no contractures Neuro: Speech clear, face symmetrical and CN II-XII grossly intact with no noted focal neuro deficits Psych: Alert and oriented to person, place, time, and situation. Appropriate and pleasant affect. A total of 35 minutes of time were spent preparing this complex discharge summary. Pt was discharged on 02/06/22 at 10 AM. Patient Condition at Discharge: Stable Plan - Discharge Summary New Discharge Prescriptions: Continue diphenhydrAMINE [Benadryl] 25 - 50 mg PO HS PRN PRN Reason: Allergy Symptoms/sleep Ibuprofen [Advil] 400 mg PO Q8HR PRN PRN Reason: Pain Cetirizine HCl [Zyrtec] 10 mg PO DAILY PRN PRN Reason: Allergy Symptoms Cholecalciferol [Vitamin D3 (25 Mcg = 1000 Iu)] 50 mcg PO DAILY ALPRAZolam [Xanax] 0.5 mg PO DAILY PRN PRN Reason: Anxiety Multivitamins, Thera [Multivitamin (formulary)] 1 tab PO DAILY estradioL [Estrace] 2 mg PO HS estradioL [Estrace] 4 mg PO DAILY Venlafaxine HCl ER [Effexor XR] 75 mg PO DAILY Discontinued Pseudoephedrine [Sudafed] 30 mg PO Q4H PRN PRN Reason: Congestion Discharge Medication List Ibuprofen [Advil] 400 mg PO Q8HR PRN 12/23/16 [History] diphenhydrAMINE [Benadryl] 25 - 50 mg PO HS PRN 12/23/16 [History] ALPRAZolam [Xanax] 0.5 mg PO DAILY PRN 02/17/21 [History] Cetirizine HCl [Zyrtec] 10 mg PO DAILY PRN 02/17/21 [History] Multivitamins, Thera [Multivitamin (formulary)] 1 tab PO DAILY 02/17/21 [History] estradioL [Estrace] 2 mg PO HS 02/17/21 [History] Cholecalciferol [Vitamin D3 (25 Mcg = 1000 Iu)] 50 mcg PO DAILY 02/05/22 [History] Venlafaxine HCl ER [Effexor XR] 75 mg PO DAILY 02/05/22 [History] estradioL [Estrace] 4 mg PO DAILY 02/05/22 [History] Follow up Appointment(s)/Referral(s): Enzo Wick MD [STAFF PHYSICIAN] - 3 Weeks (Follow up with Dr. Wick in 2-3 weeks in the office Office will call with appointment time) Cristino Martinez [STAFF PHYSICIAN] - 1 Week Patient Instructions/Handouts: Chest Pain (DC) Activity/Diet/Wound Care/Special Instructions: Activity: As tolerated. Take breaks as needed. Diet: Heart healthy and carb consistent diet. Avoid salts, or foods with hidden salts such as canned or boxed foods and frozen dinners. Extra salt makes your heart work harder and traps the fluid in your body for longer. Special Instructions: Take all of your medications as directed and remember to keep all of your doctor's appointments and follow-up as needed. You have been cleared by cardiology and will receive your echocardiogram results at your follow-up appointment as these results were not available in the reports section at time of discharge. Thank you for allowing us to participate in your care, it was truly a pleasure having you for our patient!!! Discharge Disposition: HOME SELF-CARE
== END 2022-02-06 13:10 | disposition home or self-care (01) ==
LOC: EC 14:18 → 6NMEDSUR 20:01
PROVIDERS: ADMIT Internal Medicine; ATTEND Internal Medicine
DX: R07.89 Other chest pain (principal); R07.2 Precordial pain; R00.2 Palpitations; D72.829 Elevated white blood cell count, unspecified; R06.02 Shortness of breath; M19.90 Unspecified osteoarthritis, unspecified site; F32.A Depression, unspecified; F64.9 Gender identity disorder, unspecified; E66.9 Obesity, unspecified; Z68.35 Body mass index [BMI] 35.0-35.9, adult; I49.1 Atrial premature depolarization; I08.1 Rheumatic disorders of both mitral and tricuspid valves; Z90.79 Acquired absence of other genital organ(s); Z79.899 Other long term (current) drug therapy; Z79.890 Hormone replacement therapy; Z88.8 Allergy status to other drugs, medicaments and biological substances; Z88.1 Allergy status to other antibiotic agents; Z88.4 Allergy status to anesthetic agent; Z82.49 Family history of ischemic heart disease and other diseases of the circulatory system; Z80.7 Family history of other malignant neoplasms of lymphoid, hematopoietic and related tissues
CPT/HCPCS: 96376 ×2; 96366 ×2; 96365; 99285; 36415; 93005; 93306; 80061; 80053 ×2; 84443; 83735 ×2; 84484; 85025; 85027; 85610; 85730 ×2; 71046; G0378 ×2; J1644 ×3

== ENCOUNTER 2022-04-15 20:37 | Observation (INO) | payer OTHER ==
[2022-04-15 20:47] VITALS: RESP 18
[2022-04-15] MEDS ORDERED: KETOROLAC 15 MG/ML 1 ML VIAL IVP STA (20:58)
[2022-04-15 21:46] LABS: Basophils % (A) 0 %; Eosinophils # (A) 0.1 k/uL (0-0.7); Eosinophils % (A) 1 %; HCT 38.8 % (39.0-53.0); HGB 12.7 gm/dL (13.0-17.5); Lymphocytes # (A) 2.5 k/uL (1.0-4.8); Lymphocytes % (A) 18 %; MCH 29.9 pg (25.0-35.0); MCHC 32.6 g/dL (31.0-37.0); MCV 91.6 fL (80.0-100.0); Mean Platelet Volume 7.2; Monocytes # (A) 0.7 k/uL (0-1.0); Monocytes % (A) 5 %; Neutrophils # (A) 10.2 k/uL (1.3-7.7); Neutrophils % (A) 74 %; Platelet Count 304 k/uL (150-450); RBC 4.24 m/uL (4.30-5.90); RDW 12.2 % (11.5-15.5); WBC 13.8 k/uL (3.8-10.6)
--- NOTE | 2022-04-15 21:54 | XR ---
EXAMINATION TYPE: XR chest 2V DATE OF EXAM: 04/15/2022 COMPARISON: 02/27/2022 HISTORY: Chest pain TECHNIQUE: 2 views FINDINGS: Heart and mediastinum are normal. Lungs are clear. Diaphragm is normal. Bony thorax is inta ct. There are chest leads. IMPRESSION: Normal chest. No change.
[2022-04-15 22:07] LABS: INR 0.9 (<1.2); Partial Thromboplastin Time 22.2 sec (22.0-30.0); Prothrombin Time 10.2 sec (9.0-12.0)
--- NOTE | 2022-04-15 22:07 | ED ---
Chest Pain [facility] - General Chief Complaint: Chest Pain Stated Complaint: Chest Pain Time Seen by Provider: 04/15/22 20:56 Source: patient, EMS, RN notes reviewed Mode of arrival: EMS Limitations: no limitations - History of Present Illness Initial Comments: This is a 42-year-old male who presents to the emergency department for chest pain. Patient states that earlier today, he started to have palpitations, which subsequently led to chest pressure in the center and left side of his chest. Patient has a long-standing history of chest pain. He recently followed up with Dr. Wick, cardiology. He had a normal Holter monitor, but was told that his stress test was concerning. He does not have all the details, but was told that one of the heart burton is not edmond normally. He is scheduled to have a coronary CTA at [facility] next week Wednesday, as he wanted to go with something less invasive than a coronary angioplasty. However, the patient states that at this point, he will proceed with a coronary angioplasty if needed. States that the pain he had today was worse and different than it has been in the past. Also reports that this chest pain appears to be more so related to exertion than it has in the past. Additionally, he was given a nitroglycerin by EMS on his way here, and states that this did improve his symptoms, however it dropped his blood pressure. This is the first time that taking nitroglycerin has improved his chest pain. His mother had a "silent MS " that was discovered on an EKG. He believes that his mother was around 50 when this happened, however he is not certain. Denies any other family history of cardiac problems. He is non-binary and is undergoing hormone therapy with estrogen replacement. He does have some associated shortness of breath, and feels like he is getting short of breath just during conversation. Denies any fevers, chills, sore throat, cough, abdominal pain, nausea, vomiting, diarrhea, back pain, or headaches. MD Complaint: chest pain Onset: during rest, during exertion Pain Location: substernal, left chest Pain Radiation: none Quality: tightness Treatments Prior to Arrival: aspirin, nitroglycerin - Related Data Home Medications Medication Instructions Recorded Confirmed Ibuprofen [Advil] 400 mg PO Q8HR PRN 12/23/16 04/15/22 diphenhydrAMINE [Benadryl] 25 - 50 mg PO HS PRN 12/23/16 04/15/22 ALPRAZolam [Xanax] 0.5 mg PO DAILY PRN 02/17/21 04/15/22 Cetirizine HCl [Zyrtec] 10 mg PO DAILY PRN 02/17/21 04/15/22 Multivitamins, Thera [Multivitamin 1 tab PO DAILY 02/17/21 04/15/22 (formulary)] estradioL [Estrace] 2 mg PO HS 02/17/21 04/15/22 Cholecalciferol [Vitamin D3 (25 50 mcg PO DAILY 02/05/22 04/15/22 Mcg = 1000 Iu)] Venlafaxine HCl ER [Effexor XR] 75 mg PO DAILY 02/05/22 04/15/22 estradioL [Estrace] 4 mg PO DAILY 02/05/22 04/15/22 Previous Rx's Medication Instructions Recorded Pantoprazole [Protonix] 40 mg PO DAILY 30 Days #30 tab 02/28/22 Allergies Allergy/AdvReac Type Severity Reaction Status Date / Time cefaclor [From Ceclor] AdvReac Rash/Hives Verified 04/15/22 20:47 lidocaine AdvReac SYNCOPE Verified 04/15/22 20:47 loratadine [From Claritin] AdvReac Chest Pain Verified 04/15/22 20:47 Review of Systems ROS Statement: Those systems with pertinent positive or pertinent negative responses have been documented in the HPI. ROS Other: All systems not noted in ROS Statement are negative. EKG Findings - EKG Comments: EKG Findings:: Sinus rhythm. Ventricular rate 85 bpm, HI interval 136 ms, QRS duration 105 ms, QTC 409 ms. Past Medical History Past Medical History: Osteoarthritis (OA) Additional Past Medical History / Comment(s): GENDER DYSPHORIA, DEPRESSION History of Any Multi-Drug Resistant Organisms: None Reported Past Surgical History: No Surgical Hx Reported Additional Past Surgical History / Comment(s): WISDOM TEETH REMOVED,SX ON BELEM GREAT TOES FOR INGROWN TOE NAILS,orchiectomy Past Anesthesia/Blood Transfusion Reactions: No Reported Reaction Additional Past Anesthesia/Blood Transfusion Reaction / Comment(s): MOTION SICKNESS CHILD Past Psychological History: Anxiety, Depression Smoking Status: Never smoker Past Alcohol Use History: None Reported Past Drug Use History: None Reported - Past Family History Mother Family Medical History: Myocardial Infarction ([place]) Father Family Medical History: Cancer Additional Family Medical History / Comment(s): LYMPHOMA General Exam Limitations: no limitations General appearance: alert, in no apparent distress Head exam: Present: atraumatic, normocephalic, normal inspection Respiratory exam: Present: normal lung sounds bilaterally. Absent: respiratory distress, wheezes, rales, rhonchi, stridor Cardiovascular Exam: Present: regular rate, normal rhythm, normal heart sounds. Absent: systolic murmur, diastolic murmur, rubs, gallop, clicks Neurological exam: Present: alert, oriented X3, CN II-XII intact Psychiatric exam: Present: normal affect, normal mood Skin exam: Present: warm, dry, intact, normal color. Absent: rash Course Vital Signs 04/15/22 04/16/22 20:39 00:05 Temperature 98.3 F 97.9 F Pulse Rate 91 78 Respiratory 18 18 Rate Blood Pressure 126/76 111/63 O2 Sat by Pulse 100 99 Oximetry Chest Pain MDM - MDM This is a 42-year-old male who presents to the emergency department for chest pain. Lab work does reveal leukocytosis, without any clear cause at this time. Chest x-ray revealed no acute irregularities. Lab work was otherwise unremarkable, including a negative troponin. Given that the patient had an abnormal stress test with an increase in chest pain that improved with nitrogl ycerin, will plan to admit the patient for further evaluation by cardiology with consideration of a coronary CTA versus catheterization. Patient admitted to medicine. Q3 hour troponins ordered. Cardiology consult placed as well. This case was discussed in detail with the attending ED physician. Presentation, findings, and treatment plan discussed in detail as well. Disposition Clinical Impression: Chest pain, Abnormal stress test Disposition: ADMITTED IP TO THIS HOSP
[2022-04-15 22:12] LABS: ALT 20 U/L (4-49); AST 25 U/L (17-59); African American GFR (CKD) >90 (>60 ml/min/1.73 sqM); Albumin 3.5 g/dL (3.5-5.0); Alkaline Phosphatase 73 U/L (38-126); Anion Gap 9 mmol/L; Blood Urea Nitrogen 12 mg/dL (9-20); Calcium 8.6 mg/dL (8.4-10.2); Carbon Dioxide 22 mmol/L (22-30); Chloride 106 mmol/L (98-107); Glucose 93 mg/dL (74-99); Magnesium 1.9 mg/dL (1.6-2.3); Non-African American GFR(CKD) >90 (>60 ml/min/1.73 sqM); Potassium 3.5 mmol/L (3.5-5.1); Sodium 137 mmol/L (137-145); Total Bilirubin 0.2 mg/dL (0.2-1.3)
[2022-04-15] MEDS ORDERED: ONDANSETRON 4 MG/2 ML VIAL IVP PRN (23:55)
[2022-04-15] MEDS ORDERED: ACETAMINOPHEN TAB 325 MG TAB PO PRN (23:55)
[2022-04-15] MEDS ORDERED: NALOXONE 0.4 MG/ML 1 ML VIAL IV PRN (23:55)
[2022-04-15] MEDS ORDERED: IBUPROFEN 400 MG TAB PO PRN (23:55)
[2022-04-16] MEDS ORDERED: KETOROLAC 15 MG/ML 1 ML VIAL IVP PRN
--- NOTE | 2022-04-16 04:25 | P.HPIM ---
History of Present Illness H&P Date: 04/16/22 The patient is a 42-year-old non-binary individual (preferred pronouns they/them) who presented to the emergency room with complaints of chest pain and palpitations. The patient has had multiple hospitalizations for similar complaints, although states that he had recently been following with cardiology and underwent a stress test which produced concerning results. The patient states that he is scheduled to undergo coronary CT angiogram in 1 week's time, but states that he is concerned due to his ongoing chest pain. Patient reports intermittent pain, substernal and left-sided, 8 out of 10 on maximal intensity, nonradiating, sharp and aching-like with associated palpitations. The patient r eports checking his pulse and noted it to be around 150. He also reports that nitroglycerin which she received and Route to the hospital did alleviate symptoms. EKG in the emergency room revealed sinus rhythm at [address]/T-wave changes noted as reviewed by me. Laboratory evaluation was remarkable for WBC count 13.8, and troponin less than 0.012. Review of systems: Pertinent positives and negatives as discussed in HPI, a complete review of systems was performed and all other systems are negative. Physical examination: General: non toxic, no distress, appears at stated age, obese Derm: no unusual rashes/lesions, warm Head: atraumatic, normocephalic, symmetric Eyes: EOMI, no lid lag, anicteric sclera, pupils equal round reactive to light ENT: Nose and ears atraumatic Neck: No cervical lymphadenopathy, trachea midline, supple Mouth: no lip lesion, mucus membranes moist Cardiovascular: S1S2 reg, no murmur, positive dorsalis pedis pulse bilateral, no edema Lungs: CTA bilateral, no rhonchi, no rales, no accessory muscle use Abdominal: soft, nontender to palpation, no guarding Ext: muscle strength 5 out of 5 in all 4 extremities grossly, no gross muscle atrophy, no contractures, Neuro: CN II-XI grossly intact, no gross focal neuro deficits Psych: Alert, oriented, appropriate affect Assessment/plan Chest pain, rule out ACS -Cardiology consult -Trend troponin -Cardiac monitoring -Continue with aspirin, statin DVT prophylaxis -Heparin subq The patient is admitted with an anticipated less than 2 midnight stay for evaluation of chest pain CODE STATUS: Full Code Discussed with: Patient Anticipated discharge date: in am Anticipated discharge place: Home Past Medical History Past Medical History: Osteoarthritis (OA) Additional Past Medical History / Comment(s): GENDER DYSPHORIA, DEPRESSION History of Any Multi-Drug Resistant Organisms: None Reported Past Surgical History: No Surgical Hx Reported Additional Past Surgical History / Comment(s): WISDOM TEETH REMOVED,SX ON BELEM GREAT TOES FOR INGROWN TOE NAILS,orchiectomy Past Anesthesia/Blood Transfusion Reactions: No Reported Reaction Additional Past Anesthesia/Blood Transfusion Reaction / Comment(s): MOTION SICKNESS CHILD Past Psychological History: Anxiety, Depression Smoking Status: Never smoker Past Alcohol Use History: None Reported Past Drug Use History: None Reported - Past Family History Mother Family Medical History: Myocardial Infarction ([place]) Father Family Medical History: Cancer Additional Family Medical History / Comment(s): LYMPHOMA Medications and Allergies Home Medications Medication Instructions Recorded Confirmed Type Ibuprofen [Advil] 400 mg PO Q8HR PRN 12/23/16 04/15/22 History diphenhydrAMINE [Benadryl] 25 - 50 mg PO HS PRN 12/23/16 04/15/22 History ALPRAZolam [Xanax] 0.5 mg PO DAILY PRN 02/17/21 04/15/22 History Cetirizine HCl [Zyrtec] 10 mg PO DAILY PRN 02/17/21 04/15/22 History Multivitamins, Thera [Multivitamin 1 tab PO DAILY 02/17/21 04/15/22 History (formulary)] estradioL [Estrace] 2 mg PO HS 02/17/21 04/15/22 History Cholecalciferol [Vitamin D3 (25 50 mcg PO DAILY 02/05/22 04/15/22 History Mcg = 1000 Iu)] Venlafaxine HCl ER [Effexor XR] 75 mg PO DAILY 02/05/22 04/15/22 History estradioL [Estrace] 4 mg PO DAILY 02/05/22 04/15/22 History Pantoprazole [Protonix] 40 mg PO DAILY 30 Days #30 tab 02/28/22 04/15/22 Rx Allergies Allergy/AdvReac Type Severity Reaction Status Date / Time cefaclor [From Ceclor] AdvReac Rash/Hives Verified 04/15/22 20:47 lidocaine AdvReac SYNCOPE Verified 04/15/22 20:47 loratadine [From Claritin] AdvReac Chest Pain Verified 04/15/22 20:47 Physical Exam Vitals: Vital Signs Temp Pulse Resp BP Pulse Ox 04/16/22 02:13 18 04/16/22 00:05 97.9 F 78 18 111/63 99 04/15/22 20:39 98.3 F 91 18 126/76 100 Intake and Output 04/15/22 04/15/22 04/16/22 14:59 22:59 06:59 Other: Voiding Method Toilet Weight 117.934 kg 117.934 kg Results CBC & Chem 7: 04/15/22 21:19 04/15/22 21:19 Labs: Abnormal Lab Results - Last 24 Hours (Table) 04/15/22 04/15/22 Range/Units 21:19 21:19 WBC 13.8 H (3.8-10.6) k/uL RBC 4.24 L (4.30-5.90) m/uL Hgb 12.7 L (13.0-17.5) gm/dL Hct 38.8 L (39.0-53.0) % Neutrophils # 10.2 H (1.3-7.7) k/uL Total Protein 6.0 L (6.3-8.2) g/dL Thrombosis Risk Factor Assmnt - Choose All That Apply Each Factor Represents 1 point: Age 41-60 years, Obesity (BMI >25) Other Risk Factors: No Other congenital or acquired thrombophilia - If yes, enter type in comment: No Thrombosis Risk Factor Assessment Total Risk Factor Score: 2 Thrombosis Risk Factor Assessment Level: Low Risk
[2022-04-16 07:45] VITALS: TEMP 97.7
[2022-04-16] MEDS ORDERED: HEPARIN SODIUM,PORCINE/PF 5,000 UNIT/0.5 ML SYRINGE SQ SCH (08:00)
[2022-04-16] MEDS ORDERED: PANTOPRAZOLE 40 MG TABLET PO SCH (09:00)
[2022-04-16] MEDS ORDERED: VENLAFAXINE HCL ER 75 MG CAP PO SCH (09:00)
[2022-04-16] MEDS ORDERED: ASPIRIN 325 MG TAB PO SCH (09:00)
[2022-04-16] MEDS ORDERED: MULTIVITAMINS, THERA 1 EACH TAB PO SCH (09:00)
[2022-04-16] MEDS ORDERED: CHOLECALCIFEROL 25 MCG (1000 IU) TABLET PO SCH (09:00)
[2022-04-16] MEDS ORDERED: NITROGLYCERIN SL TABS 0.4 MG TAB SUBLINGUAL PRN (09:33)
[2022-04-16] MEDS ORDERED: SODIUM CHLORIDE 0.9% 1,000 ML in EMPTY BAG 1 BAG IV SCH (09:45)
--- NOTE | 2022-04-16 10:16 | P.CRDCN ---
History of Present Illness History of present illness: HISTORY OF PRESENTING ILLNESS Patient is a 42-year-old non-binary individual with gender dysmorphic syndrome, recent episodes of chest pain or pressure, abnormal stress test who presents sec ondary to more episodes of chest pain. Patient had undergone gender treatment with orchiectomy as well as being placed on spironolactone and estrogen in the past. No significant changes and medical regimen recently. Patient has been undergoing workup as an outpatient with Dr. Wick. Most of symptoms include feeling chest pain, heart racing, lightheaded at times and short of breath. Patient does admit to somewhat similar episodes approximate 5 years ago and had undergone workup and symptoms improved after discontinuing the spironolactone. Patient had abnormal stress test in the office and therefore had recommended CTA versus heart catheterization. We again discussed findings and patient would prefer heart catheterization for definitive diagnosis. Currently denies any chest pain or pressure. REVIEW OF SYSTEMS At the time of my exam: CONSTITUTIONAL: Denies fever or chills. CARDIOVASCULAR: +chest pain, +shortness of breath, no orthopnea, PND +palpitations. RESPIRATORY: Denies cough. GASTROINTESTINAL: Denies abdominal pain, diarrhea, constipation, nausea or vomiting. MUSCULOSKELETAL: Denies myalgias. NEUROLOGIC: Denies numbness, tingling or weakness. ENDOCRINE: Denies fatigue, weight change, polydipsia or polyurina. GENITOURINARY: Denies burning, hematuria or urgency with micturation. HEMATOLOGIC: Denies history of anemia or bleeding. PHYSICAL EXAMINATION Vital signs reviewed. CONSTITUTIONAL: No apparent distress. HEENT: Head is normocephalic. Pupils are equal, round. Sclerae anicteric. Mucous membranes of the mouth are moist. No JVD. No carotid bruit. CHEST EXAMINATION: Lungs are clear to auscultation. No chest wall tenderness is noted on palpation or with deep breathing. HEART EXAMINATION: Regular rate and rhythm. S1, S2 heard. No murmurs, gallops or rub. ABDOMEN: Soft, nontender. Positive bowel sounds. EXTREMITIES: 2+ peripheral pulses, no lower extremity edema and no calf tenderness. NEUROLOGIC EXAMINATION: Patient is awake, alert and oriented x3. ASSESSMENT 1. Atypical chest pain, shortness breath, palpitations, lightheadedness. Troponins negative 3 2. Abnormal stress test recently in the office 3. Multitude of symptoms, may be related to POTS 4. 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 Workup has again begun unrevealing with normal troponins and no significant arrhythmias. Patient had abnormal stress test in the office and therefore discussed definitive diagnosis with either heart catheterization or scheduled CTA did not week. Patient would like definitive answer and therefore we will schedule heart catheterization today. If heart catheterization unrevealing some of symptoms may be related to POTS however may be worked up as an outpt. Past Medical History Past Medical History: Osteoarthritis (OA) Additional Past Medical History / Comment(s): GENDER DYSPHORIA, DEPRESSION History of Any Multi-Drug Resistant Organisms: None Reported Past Surgical History: No Surgical Hx Reported Additional Past Surgical History / Comment(s): WISDOM TEETH REMOVED,SX ON BELEM GREAT TOES FOR INGROWN TOE NAILS,orchiectomy Past Anesthesia/Blood Transfusion Reactions: No Reported Reaction Additional Past Anesthesia/Blood Transfusion Reaction / Comment(s): MOTION SICKNESS CHILD Past Psychological History: Anxiety, Depression Smoking Status: Never smoker Past Alcohol Use History: None Reported Past Drug Use History: None Reported - Past Family History Mother Family Medical History: Myocardial Infarction ([place]) Father Family Medical History: Cancer Additional Family Medical History / Comment(s): LYMPHOMA Medications and Allergies Home Medications Medication Instructions Recorded Confirmed Type Ibuprofen [Advil] 400 mg PO Q8HR PRN 12/23/16 04/15/22 History diphenhydrAMINE [Benadryl] 25 - 50 mg PO HS PRN 12/23/16 04/15/22 History ALPRAZolam [Xanax] 0.5 mg PO DAILY PRN 02/17/21 04/15/22 History Cetirizine HCl [Zyrtec] 10 mg PO DAILY PRN 02/17/21 04/15/22 History Multivitamins, Thera [Multivitamin 1 tab PO DAILY 02/17/21 04/15/22 History (formulary)] estradioL [Estrace] 2 mg PO HS 02/17/21 04/15/22 History Cholecalciferol [Vitamin D3 (25 50 mcg PO DAILY 02/05/22 04/15/22 History Mcg = 1000 Iu)] Venlafaxine HCl ER [Effexor XR] 75 mg PO DAILY 02/05/22 04/15/22 History estradioL [Estrace] 4 mg PO DAILY 02/05/22 04/15/22 History Pantoprazole [Protonix] 40 mg PO DAILY 30 Days #30 tab 02/28/22 04/15/22 Rx Allergies Allergy/AdvReac Type Severity Reaction Status Date / Time cefaclor [From Ceclor] AdvReac Rash/Hives Verified 04/15/22 20:47 lidocaine AdvReac SYNCOPE Verified 04/15/22 20:47 loratadine [From Claritin] AdvReac Chest Pain Verified 04/15/22 20:47 Physical Exam Vitals: Vital Signs Temp Pulse Pulse Resp BP BP Pulse Ox 04/16/22 07:34 82 18 04/16/22 07:00 97.7 F 73 18 110/70 96 04/16/22 02:13 18 04/16/22 01:00 97.9 F 82 19 118/78 99 04/16/22 00:05 97.9 F 78 18 111/63 99 04/15/22 20:39 98.3 F 91 18 126/76 100 Intake and Output 04/15/22 04/16/22 04/16/22 22:59 06:59 14:59 Other: Voiding Method Toilet # Voids 2 Weight 117.934 kg 117.934 kg Results 04/15/22 21:19 04/15/22 21:19 Cardiac Enzymes 04/15/22 04/15/22 04/16/22 Range/Units 21:19 21:19 00:39 AST 25 (17-59) U/L Troponin I <0.012 <0.012 (0.000-0.034) ng/mL 04/16/22 Range/Units 03:06 AST (17-59) U/L Troponin I <0.012 (0.000-0.034) ng/mL Coagulation 04/15/22 Range/Units 21:19 PT 10.2 (9.0-12.0) sec APTT 22.2 (22.0-30.0) sec CBC 04/15/22 Range/Units 21:19 WBC 13.8 H (3.8-10.6) k/uL RBC 4.24 L (4.30-5.90) m/uL Hgb 12.7 L (13.0-17.5) gm/dL Hct 38.8 L (39.0-53.0) % Plt Count 304 (150-450) k/uL Comprehensive Metabolic Panel 04/15/22 Range/Units 21:19 Sodium 137 (137-145) mmol/L Potassium 3.5 (3.5-5.1) mmol/L Chloride 106 (98-107) mmol/L Carbon Dioxide 22 (22-30) mmol/L BUN 12 (9-20) mg/dL Creatinine 0.94 (0.66-1.25) mg/dL Glucose 93 (74-99) mg/dL Calcium 8.6 (8.4-10.2) mg/dL AST 25 (17-59) U/L ALT 20 (4-49) U/L Alkaline Phosphatase 73 (38-126) U/L Total Protein 6.0 L (6.3-8.2) g/dL Albumin 3.5 (3.5-5.0) g/dL Current Medications Generic Name Dose Route Start Last Admin Trade Name Freq PRN Reason Stop Dose Admin Acetaminophen 650 mg 04/15/22 23:55 Acetaminophen Tab 325 Mg Tab PO Q6HR PRN Mild Pain or Fever > 100.5 Aspirin 325 mg 04/16/22 09:00 04/16/22 10:08 Aspirin 325 Mg Tab PO 325 mg DAILY DOMO Administration Atorvastatin Calcium 80 mg 04/16/22 21:00 Atorvastatin 80 Mg Tab PO HS DOMO Cholecalciferol 50 mcg 04/16/22 09:00 04/16/22 10:08 Cholecalciferol 25 Mcg (1000 Iu) Tablet PO 50 mcg DAILY DOMO Administration Estradiol 2 mg 04/16/22 00:00 04/16/22 00:09 Estradiol 0.5 Mg Tab PO Not Given HS DOMO Estradiol 4 mg 04/16/22 09:00 04/16/22 10:09 Estradiol 0.5 Mg Tab PO 4 mg DAILY DOMO Administration Heparin Sodium (Porcine) 5,000 unit 04/16/22 08:00 04/16/22 10:08 Heparin Sodium,Porcine/Pf 5,000 Unit/0.5 Ml Syringe SQ 5,000 unit Q8HR DOMO Administration Heparin Sodium (Porcine) 10, 1,001 mls @ 999 mls/hr 04/17/22 07:00 000 unit/ Sodium Chloride IRRIGATION 04/17/22 23:00 ONCE PRN INTRA-OP Heparin Sodium (Porcine) 2,500 250.5 mls @ 250 mls/hr 04/17/22 07:00 unit/ Sodium Chloride IRRIGATION 04/17/22 23:00 ONCE PRN INTRA-OP Sodium Chloride 1,000 ml/ IV 1,000 mls @ 117.934 mls/hr 04/16/22 09:45 04/16/22 10:07 Solution IV 117.934 mls/hr .Q8H29M DOMO Administration 1 ML/KG/HR Multivitamins 1 each 04/16/22 09:00 04/16/22 10:08 Multivitamins, Thera 1 Each Tab PO 1 each DAILY DOMO Administration Naloxone HCl 0.2 mg 04/15/22 23:55 Naloxone 0.4 Mg/Ml 1 Ml Vial IV Q2M PRN Opioid Reversal Nitroglycerin 0.4 mg 04/16/22 09:33 Nitroglycerin Sl Tabs 0.4 Mg Tab SUBLINGUAL Q5M PRN Chest Pain Ondansetron HCl 4 mg 04/15/22 23:55 Ondansetron 4 Mg/2 Ml Vial IVP Q8HR PRN Nausea And Vomiting Pantoprazole Sodium 40 mg 04/16/22 09:00 04/16/22 10:08 Pantoprazole 40 Mg Tablet PO 40 mg DAILY DOMO Administration Venlafaxine HCl 75 mg 04/16/22 09:00 Venlafaxine Hcl Er 75 Mg Cap PO DAILY DOMO Intake and Output 04/15/22 04/16/22 04/16/22 22:59 06:59 14:59 Other: Voiding Method Toilet # Voids 2 Weight 117.934 kg 117.934 kg 04/15/22 21:19 04/15/22 21:19
[2022-04-16] MEDS ORDERED: fentaNYL (PF) 50 MCG/ML 2 ML AMP ONE (10:54)
[2022-04-16] MEDS ORDERED: VERAPAMIL 2.5 MG/ML 2 ML AMP ONE (10:54)
[2022-04-16] MEDS ORDERED: IV FLUID CONTINUATION 1,000 ML IV ONE (11:25)
[2022-04-16] MEDS ORDERED: fentaNYL (PF) 50 MCG/ML 2 ML AMP IV ONE (11:26)
[2022-04-16] MEDS ORDERED: MIDAZOLAM 2 MG/2 ML VIAL IV ONE (11:26)
[2022-04-16] MEDS ORDERED: LIDOCAINE 1% INJ 10MG/ML (30 ML VIAL-PF) SQ ONE (11:28)
[2022-04-16] MEDS ORDERED: VERAPAMIL SYRINGE (5 MG/10 ML) INTRAARTER ONE (11:29)
[2022-04-16] MEDS ORDERED: HEPARIN SODIUM 1,000 UN/ML (10ML VL) IV ONE (11:32)
[2022-04-16] MEDS ORDERED: IOPAMIDOL-370 125ML BTL INJ ONE (11:39)
--- NOTE | 2022-04-16 13:10 | P.CARDCATH ---
Description of Procedure: PROCEDURES PERFORMED: Left heart catheterization, bilateral coronary angiography INDICATION: Abnormal stress test CONSENT:I have discussed the risks, benefits and alternative therapies for the above-mentioned procedure and for both sedation/analgesia as well as necessary blood product administration, if indicated, as they pertain to this patient. The patient has indicated understanding and acceptance of the risks and procedures discussed. PROCEDURE: After the risks, benefits and alternatives of the above mentioned procedure explained in detail with the patient, informed consent was obtained. Patient was taken to the catheterization lab and prepped and draped in usual fashion. 1% lidocaine was used to anesthetize the right radial artery. A 6- Danish sheath was placed in the right radial artery using modified Seldinger technique. Left coronary angiography was performed with a 5-Danish JL 3.5 catheter and right coronary angiography was performed with a 5-Danish JR5 catheter in various views. A 5-Danish FR5 catheter was inserted into the left ventricle and pressure measurements were obtained. The right radial sheath was removed and a TR band was placed with hemostasis achieved. The patient tolerated the procedure well. Patient was transported back to the post catheterization holding area in stable condition. Conscious Sedation: Patient was monitored under the direct supervision of vision of myself for conscious sedation using Versed and fentanyl for a total duration of 10 minutes HEMODYNAMICS: Aorta: 118/76 LV: 114/4, LVEDP 14 SELECTIVE CORONARY ARTERIOGRAPHY: LEFT MAIN: The left main is a large caliber vessel which bifurcates into the LAD and circumflex. There is no significant stenosis. LEFT ANTERIOR DESCENDING CORONARY ARTERY: LAD is a large caliber vessel which wraps around to the apex. There is no significant stenosis. LEFT CIRCUMFLEX CORONARY ARTERY: Left circumflex is a moderate caliber vessel without significant stenosis. RIGHT CORONARY ARTERY: The right coronary artery is a large caliber vessel which gives off a PDA and PLV branch and is the dominant vessel. There is no sig nificant stenosis. FINAL IMPRESSION: 1. Normal coronary arteries as described above. 2. Normal left sided filling pressures PLAN: 1. Aggressive risk factor modification per most recent ACC/AHA guidelines. 2. Follow-up in the office in 1-2 weeks.
--- NOTE | 2022-04-16 15:16 | P.DS ---
Providers Date of admission: 04/15/22 22:58 Expected date of discharge: 04/16/22 Attending physician: Catherine Mascorro MD Consults: 04/15/22 23:55 Consult Physician Urgent Consulting Provider: Enzo Wick Consult Reason/Comments: Chest pain, abnormal stress test Do you want consulting provider notified?: Yes, Notify in am Primary care physician: Physician Nonstaff Hospital Course: Discharge Diagnosis: Acute on chronic Chest pain Recent abnormal stress test Hospital Course: 42-year-old non-binary individual with gender dysmorphic syndrome presenting with acute on chronic chest pain. Patient has been having on-and-off chest pain and palpitations for about 2 months. He had outpatient workup with Holter monitor for 3 weeks, which was normal. His stress test as an outpatient was abnormal with some wall motion abnormalities per patient. He was scheduled for his CTA versus catheterization. However patient had worsening chest pain yesterday, and decided to present to the hospital. Patient underwent coronary angiogram, which showed no significant coronary stenosis. Per cardiology assessment, his symptoms may be related to POTS. Patient will require outpatient workup with Dr. Wick for POTS. No new medications prescribed. Patient seen and examined at bedside. Vital signs reviewed and stable. General: nontoxic, no distress, appears at stated age Derm: warm, dry Head: atraumatic, normocephalic, symmetric Eyes: EOMI, no lid lag, anicteric sclera Mouth: no lip lesion, mucus membranes moist Cardiovascular: S1S2 reg, no murmur Lungs: CTA bilateral, no rhonchi, no rales , no accessory muscle use Abdominal: soft, nontender to palpation, no guarding, no appreciable organomegaly Ext: no gross muscle atrophy, no edema, no contractures Neuro: CN II-XI grossly intact, no focal neuro deficits Psych: Alert, oriented, appropriate affect A total of 35 minutes of time were spent preparing this complex discharge summary. Patient was discharged on 04/16/22 15:01. Plan - Discharge Summary Discharge Rx Participant: No New Discharge Prescriptions: Continue diphenhydrAMINE [Benadryl] 25 - 50 mg PO HS PRN PRN Reason: Allergy Symptoms/sleep Ibuprofen [Advil] 400 mg PO Q8HR PRN PRN Reason: Pain Cetirizine HCl [Zyrtec] 10 mg PO DAILY PRN PRN Reason: Allergy Symptoms Cholecalciferol [Vitamin D3 (25 Mcg = 1000 Iu)] 50 mcg PO DAILY ALPRAZolam [Xanax] 0.5 mg PO DAILY PRN PRN Reason: Anxiety Multivitamins, Thera [Multivitamin (formulary)] 1 tab PO DAILY estradioL [Estrace] 2 mg PO HS estradioL [Estrace] 4 mg PO DAILY Venlafaxine HCl ER [Effexor XR] 75 mg PO DAILY Pantoprazole [Protonix] 40 mg PO DAILY 30 Days #30 tab Discharge Medication List Ibuprofen [Advil] 400 mg PO Q8HR PRN 12/23/16 [History] diphenhydrAMINE [Benadryl] 25 - 50 mg PO HS PRN 12/23/16 [History] ALPRAZolam [Xanax] 0.5 mg PO DAILY PRN 02/17/21 [History] Cetirizine HCl [Zyrtec] 10 mg PO DAILY PRN 02/17/21 [History] Multivitamins, Thera [Multivitamin (formulary)] 1 tab PO DAILY 02/17/21 [History] estradioL [Estrace] 2 mg PO HS 02/17/21 [History] Cholecalciferol [Vitamin D3 (25 Mcg = 1000 Iu)] 50 mcg PO DAILY 02/05/22 [History] Venlafaxine HCl ER [Effexor XR] 75 mg PO DAILY 02/05/22 [History] estradioL [Estrace] 4 mg PO DAILY 02/05/22 [History] Pantoprazole [Protonix] 40 mg PO DAILY 30 Days #30 tab 02/28/22 [Rx] Follow up Appointment(s)/Referral(s): Enzo Wick MD [STAFF PHYSICIAN] - 1 Week Nonstaff,Physician [Primary Care Provider] - 1-2 days Patient Instructions/Handouts: After Radial Heart Catheterization (GEN) Activity/Diet/Wound Care/Special Instructions: Please follow up with Cardiology for further work up regarding POTS. Discharge Disposition: HOME SELF-CARE
[2022-04-16 16:20] VITALS: BP 106/67; PULSE 75
[2022-04-16] MEDS ORDERED: ATORVASTATIN 80 MG TAB PO SCH (21:00)
[2022-04-17] MEDS ORDERED: HEPARIN SODIUM,PORCINE 2,500 UNIT in SODIUM CHLORIDE 0.9% 250 ML IRRIGATION PRN (07:00)
[2022-04-17] MEDS ORDERED: HEPARIN SODIUM,PORCINE 10,000 UNIT in SODIUM CHLORIDE 0.9% 1,000 ML IRRIGATION PRN (07:00)
== END 2022-04-16 17:25 | disposition home or self-care (01) ==
LOC: EC 20:37 → 6NMEDSUR 22:58
PROVIDERS: ADMIT Internal Medicine; ATTEND Internal Medicine
DX: R07.89 Other chest pain (principal); D72.829 Elevated white blood cell count, unspecified; F32.A Depression, unspecified; F41.9 Anxiety disorder, unspecified; Z80.7 Family history of other malignant neoplasms of lymphoid, hematopoietic and related tissues; Z82.49 Family history of ischemic heart disease and other diseases of the circulatory system; Z79.890 Hormone replacement therapy; Z79.899 Other long term (current) drug therapy; G89.29 Other chronic pain; R94.39 Abnormal result of other cardiovascular function study
CPT/HCPCS: 96372; 96374; 99285; 36415; 93005; 93458; 85379; 83880; 80053; 83735; 84484 ×2; 85025; 85610; 85730; 71046; G0378 ×2; C1769; C1894; J2250; J2001; J3010; J1644 ×2; J1885; Q9967; 96360